=== PATIENT | female | born 1965 | race Caucasian/White ===

== ENCOUNTER 2018-05-10 18:34 | Emergency (ER) | payer BC, SELFPAY ==
[2018-05-10 18:35] VITALS: BP 139/76; PULSE 93; RESP 18; TEMP 37.2; O2SAT 97; BMI 30.8
--- NOTE | 2018-05-10 18:46 | CT_ITS ---
STUDY: CT ABDOMEN AND PELVIS WITH CONTRAST REASON FOR EXAM: Female, 53 years old. Blood in stool. Crohn's disease. History of ileum resection. RADIATION DOSAGE (If Supplied By Facility): CTDIvol = ( 14.86 ) mGy, DLP = ( 980.04 ) mGycm TECHNIQUE: Transaxial images were obtained from the dome of the diaphragm to the symphysis pubis without oral contrast. 100ML ml of Isovue 300 contrast was administered. Sagittal and coronal images were reconstructed. Individualized dose optimization techniques were used for this CT. COMPARISON: 04/03/2013 FINDINGS: The visualized lung bases are clear. The visualized portions of the heart and pericardium are within normal limits. There are no calcified gallstones present. The liver is within normal limits. There are no suspicious hepatic lesions. The spleen is normal in size. The pancreas is within normal limits. The adrenal glands are within normal limits. There are no obstructing renal stones. There is no hydronephrosis. There are no focal renal lesions. Normal visualized stomach. There is no bowel obstruction. There is bowel wall thickening in the ascending colon which is consistent with colitis. The appendix is not visualized, but there are no findings to suggest acute appendicitis. The aorta is normal in caliber. There is no abdominal or pelvic free air, free fluid, fluid collection or lymphadenopathy. There are no destructive osseous lesions. CT/Abdomen/Pelvis W IV Cont ONLY IMPRESSION: Colitis in the ascending colon. Electronically Signed: Prabhjot Rosenthal, at 20:00 EDT Tel , Service support ,
--- NOTE | 2018-05-10 19:00 | ED.DCSUM_ITS ---
- ER Visit Summary Date of Service: 05/10/18 Chief Complaint: Bright red blood per rectum History of Present Illness: The patient is a 53 F presents to the emergency department with bright red blood per rectum. The patient has a history of Crohn 's disease, but has been without medication and well-controlled for over 3 years. She had a prior partial bowel resection of her terminal ileum in 2011. She states she has been without treatment for almost 3 years. She states today , she was in her normal state of health. She woke this morning with some mild lower abdominal cramping and the urge to move her bowels. She had a normal bowel movement. There is no diarrhea. She states that she had a normal day. She actually went hiking with her . When she came home again, she had the sudden urge to move her bowels. She states when she did, it was bright red blood with clots. She has never had anything like this before. She states this is much more blood that she has had with her Crohn's disease in the past. She denies any fevers or chills. She denies any abdominal pain. The patient is on no anticoagulants. Physical Examination: Vital signs reviewed General: Well-nourished, well-developed Head: Normocephalic, atraumatic Eyes: Pupils equal and reactive, extraocular muscles intact Neck, supple, no lymphadenopathy Heart: Regular rate and rhythm Respiratory: No distress, clear bilaterally Abdomen: Soft, nontender, nondistended, no peritoneal signs Back: Nontender Extremities: Nontender, no edema, no cords Skin: Normal color no rash Neuro: Alert and oriented, no focal or lateralizing deficits Test Results: [] Emergency Department Course and Treatment: The patient had gross red blood, but no active bleeding on examination. Her abdomen was benign. With her history of Crohn's disease, IV was established. Patient was given IV fluids. Screening labs are obtained. Hemoglobin is normal. Orthostatics were negative. CT demonstrates colitis of the ascending colon. I had a long conversation with the patient. She is very hesitant about doing any medication. She states that she does not want to be on any medications. I did residential substance abuse counselor her that short burst of steroid and oral antibiotic with significantly improve her symptoms. After much discussion, the patient has agreed. I do feel that she is safe for outpatient therapy. She has had no further bleeding. She is not on anticoagulants. She does not have a fever. She has no abdominal tenderness. She is given Solu-Medrol, Cipro, and Flagyl and will be continued on this as an outpatient. She is counseled that if her symptoms worsen to return immediately. She is comfortable with this plan of care. Treatment Plan: [] Disposition: Discharge Impression: 1. Crohn's flare This note was generated with [employer] dictation software. It may contain incorrect words, spelling, and punctuation that were not noted in review of the chart prior to signing ED Disposition - Plan for ED Patient: Chief Complaint: GI Bleed Instructions: ED Inflam Bowel Disease Crohn Prescriptions: Metronidazole [Flagyl] 500 mg PO Q8H #21 tab Prednisone [Deltasone] 40 mg PO DAILY #10 tab Ciprofloxacin [Cipro] 500 mg PO BID #10 tab Referrals: Jaison Miller MD [Primary Care Provider] -
[2018-05-10 19:03] VITALS: BP 126/61; PULSE 79; RESP 16; O2SAT 96
[2018-05-10] MEDS: 0.9% Normal Saline 1,000 ML 1000 ML IV (19:03)
[2018-05-10 19:36] LABS: Bacteria 0 SEEN /hpf (None Seen); Mucous, Urine 0 SEEN /hpf (<or=2+); Red Blood Cells-Urine 0 SEEN /hpf (0-5); Squamous Epithelial Cells - UA 0 SEEN /hpf (5-10); White Blood Cells 0 SEEN /hpf (0-5)
[2018-05-10 19:37] LABS: Absolute Lymphocyte Count 2.13 X10^3/ul (0.83-4.51); Absolute Neutrophil Count 4.4 X10^3/uL (2.0-7.7); Basophil# 0.03 X10^3/uL; Basophil% 0.4 % (0-1); Eosinophil# 0.19 X10^3/uL; Eosinophils% 2.5 % (0-5); Hematocrit 36.1 % (37-47); Lymphocyte # 2.13 X10^3/ul (4.0); Lymphocyte % 28.5 % (19-41); Mean Corp Hgb Conc 33.2 g/gl (32-36); Mean Corpuscular Hgb 29.3 pg (27.0-32.0); Monocyte# 0.68 X10^3/uL; Monocyte% 9.1 % (0-10); Neutrophil # 4.44 X10^3/uL (2.7-7.7); Neutrophil % 59.4 % (47-70); Platelet Count 255 K/mm3 (150-450); RBC Distribution Width CV 12.8 % (11.6-14.6); RBC Distribution Width SD 39.9 fl (35.1-43.9); White Blood Count 7.5 K/mm3 (4.4-11.0)
[2018-05-10 19:41] LABS: Color, Urine Yellow (Yellow); Glucose, Dipstick Normal (Normal); Ketone-Dipstick Negative (Negative); Leukocyte Esterase-Dipstick Negative /ul (Negative); Nitrite-Dipstick Negative (Negative); Occult Blood-Urine Negative /ul (Negative); Protein-Dipstick Negative (Negative); Urine Bilirubin Dipstick Negative (Negative); Urine Clarity Clear (Clear); Urine Urobilinogen Normal (Normal)
[2018-05-10 19:43] LABS: ALB/GLOB Ratio 1.1 RATIO (0.9-2.4); AST(SGOT) 22 U/L (15-37); Alanine Aminotransfer ALT/SGPT 23 U/L (13-56); Albumin, Serum 3.4 g/dL (3.2-5.0); Alkaline Phosphatase 95 U/L (45-117); Anion Gap 4 (5-15); BUN 16 mg/dL (7-18); Calcium,Total 8.6 mg/dL (8.5-10.1); Chloride 106 mmol/L (98-107); EST Glomerular Filtration Rate 80 mL/min (>60); Est Glom Filt Rate - Afr Amer 97 mL/min (>60); Estimated Creatinine Clearance 74.86 ml/min; Globulin 3.2 g/dL (2.2-4.2); Glucose 88 mg/dL (74-106); Protein, Total 6.6 g/dL (6.4-8.2); Sodium Level 140 mmol/L (136-145)
[2018-05-10 19:44] LABS: POSITIVE COUNT NO; POSITIVE DIFFERENTIAL NO; POSITIVE MORPHOLOGY NO
[2018-05-10 20:05] VITALS: BP 118/79; BP 130/78; BP 149/68; PULSE 68; PULSE 78; PULSE 80
[2018-05-10] MEDS: MethylPREDNISolone 125 MG/2 ML Vial IV (20:33)
[2018-05-10] MEDS: Ciprofloxacin 500 MG Tablet PO (20:33)
[2018-05-10] MEDS: metroNIDAZOLE 500 MG Tablet PO (20:33)
[2018-05-10 20:44] VITALS: RESP 16
--- NOTE | 2018-05-10 20:44 | ED.RN ---
REVIEWED D/C INSTRUCTIONS, FOLLOW UP CARE, PRESCRIPTIONS, AND S/S THAT WOULD WARRANT A RETURN TO THE ED WITH PT. PT VERBALIZED AN UNDERSTANDING AND DENIES FURTHER QUESTIONS FOR THIS RN. PT SKIN P/W/D, RESP EVEN AND UNLABORED, PT A&O X 3, NO DISTRESS NOTED. PT AMBULATED OUT OF ED, GAIT STEADY.
== END 2018-05-10 20:46 | disposition home or self-care (01) ==
LOC: ED 18:50
PROVIDERS: Emergency Provider Emergency Medicine; Family Provider Family Medicine; PCP Family Medicine
DX: K50.90 Crohn's disease, unspecified, without complications (principal)
CPT/HCPCS: 74177; 80053; 81001; 85025; 86850; 86900; 96361; 96374; 99285; J7030; Q9967; A4216

== ENCOUNTER 2018-12-26 08:45 | Outpatient (RCR) | payer BC, SELFPAY ==
--- NOTE | 2018-12-26 09:05 | BH.SGPN.GN ---
Behaviors/Verbalizations/Mental Status: []Client alert and oriented, neatly dressed and groomed. Eye contact good. Motor activity appropriate. Speech within normal limits. Affect constricted, mood anxious. Thoughts linear, logical, no signs of hallucinations or delusions. Reviewed client?s symptom tracker no risk in suicidal ideation, plan, and intent as of 12/26/18. Client Response/Progress/Benefit: []Client responded well for her first day. Client was quiet, but she would participate when prompted. Client shared she feels ?anxious about being here.? Client reported she has never experienced a ?low like this before? and would like to stop crying all the time. Client declined to share further and then left to see program psychiatrist. Client was receptive to emotional support and validation from peers. Client appeared to benefit from connecting with group members. Client?s first day in PHP. Client to continue to prevent decompensation and increase mood, reduce depression, and increase mood stability.
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
--- NOTE | 2018-12-26 11:14 | BH.SGPN.GN ---
Behaviors/Verbalizations/Mental Status: [Client eye contact fair to good ? at times appearing intense, casually dressed, motor activity appropriate, speech normal rate and tone, mood anxious, constricted affect, thoughts linear and intact, no evidence of delusions or hallucinations.] Client Response/Progress/Benefit: [Client responded well to group and did well to provide some input despite appearing anxious in group setting. Client did well to challenge herself and volunteered to take on an active role in the activity. She was able to rely on the guidance of her peers when working to overcome restrictions or barriers in order to meet the goal and ask for clarification as needed. Appeared to become more comfortable as group progressed AEB client laughing with peers. Client worked cooperatively with group to brainstorm solutions to personal barriers identified and seemed to benefit from increasing repertoire of skills and strategies that can help overcome personal obstacles. Client progress in her ability to work through anxiety in order to engage in the group as well as connect with materials discussed. Client reported wanting to focus on improving her motivation and identified potential strategies in doing so as creating a list of small steps and manageable tasks she can take on. Recommended to continue IOP level care to decrease anxiety, develop healthy coping skills, and prevent decompensation.] Narrative Note: []
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
--- NOTE | 2018-12-26 13:44 | BH.DR.ITP ---
Initial Treatment Plan - Patient Information Visit Information: ADMISSION DATE: 12/26/18 EXPECTED LOS: 4-6 weeks Diagnoses:: Major depression, adjustment disorder with anxiety - Problems/Symptoms Problem #1:: depression Symptom:: low mood, crying all of the time, irritability Problem #2:: anxiety Symptom:: problems handling stress, lacking coping skills
--- NOTE | 2018-12-26 15:27 | BH.MDN ---
Multi-Disciplinary Note - Note 45-min Individual Time Started:: 12:15 Date: 12/26/18 Purpose of session/treatment goals addressed:: Purpose of session was to assess pt's current symptoms and stressors. Gathered additional information about what led up to pt being admitted to [facility] level of care. Psychoeducation about cognitive triangle and behavioral activation. Discussed weekend plan to help pt maintain safety and stay active. Eye Contact:: Good Motor Activity:: Restless Appearance:: Casual Speech:: Appropriate Mood:: Anxious, Depressed Affect:: Congruent Thoughts:: Linear, Logical, No evidence of hallucinations/delusions noted Staff Interventions:: Therapist used open ended questions to elicit pt's current symptoms and stressors. Therapist used probing questions to gather additional information about what led pt to [facility] level of care admission. Therapist provided support by validating emotions and using active listening. Therapist provided psychoeducation about cognitive triangle and behavioral activation. Provided pt with weekend plan worksheet in which pt is to identify 3 fun/enjoyable things to do, 3 responsibities, and reflect on goals want to accomplish in [facility]. Client Response:: Client reported she enjoyed the first day of group and was able to learn something new. Client reported she noticed June 2018 after taking a fall because of her Crohn's disease is one of the triggers to client decompensating. Client shared the fall resuled in medical complications from her Crohn's disease. Client stated after recovering from the medical complications she struggled with getting back to her exercise routine. Client shared she used to run/walk at least 5.5 miles every day until she had the fall in June 2018. Client reported in addition to not exercising she started to have more problems at work, which increased her stress level. Client shared she had a breakdown beginning of November because with all the stress she was experiencing and after a situation with her kids she felt like none of her children cared about her. Client stated she was yelling, screaming and having a melt down. Client reported she continued to decompensate throughout the month which was impacting her ability to function at work. Client shared she was non-stop crying at both home and work. Client reported she sought help because her employer gave her FMLA paperwork and told her she needed help. Client shared she would like to learn strategies to help her manage her emotions because she wants to stop crying all the time. Client reported she wants to improve her motivation because she stated I don't want to do anything. 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 Client connected with psychoeducation about connection between thoughts, emotions, and behaviors as well as education about behavioral activation. Client agreeable to complete weekend plan provided for homework. Risks/Concerns:: Client denies current suicidal ideation, plan or intention to date. Progress Toward Goals/Plan:: No progress noted given client's first day in PHP. Session focused on building rapport, starting to identify treatment goals, and education. Patient to continue PHP level of care to decrease depression, maintain safety and prevent decompensation. Time Stopped:: 13:00
--- NOTE | 2018-12-29 08:28 | BH.MDN_ITS ---
Multi-Disciplinary Note - Note 45-min Individual Time Started:: 12:15 Date: 12/26/18 Purpose of session/treatment goals addressed:: Purpose of session was to assess pt's current symptoms and stressors. Gathered additional information about what led up to pt being admitted to [facility] level of care. Psychoeducation about cognitive triangle and behavioral activation. Discussed weekend plan to help pt maintain safety and stay active. Eye Contact:: Good Motor Activity:: Restless Appearance:: Casual Speech:: Appropriate Mood:: Anxious, Depressed Affect:: Congruent Thoughts:: Linear, Logical, No evidence of hallucinations/delusions noted Staff Interventions:: Therapist used open ended questions to elicit pt's current symptoms and stressors. Therapist used probing questions to gather additional information about what led pt to [facility] level of care admission. Therapist provided support by validating emotions and using active listening. Therapist provided psychoeducation about cognitive triangle and behavioral activation. Provided pt with weekend plan worksheet in which pt is to identify 3 fun/enjoyable things to do, 3 responsibities, and reflect on goals want to accomplish in [facility]. Client Response:: Client reported she enjoyed the first day of group and was able to learn something new. Client reported she noticed June 2018 after taking a fall because of her Crohn's disease is one of the triggers to client decompensating. Client shared the fall resuled in medical complications from her Crohn's disease. Client stated after recovering from the medical complications she struggled with getting back to her exercise routine. Client shared she used to run/walk at least 5.5 miles every day until she had the fall in June 2018. Client reported in addition to not exercising she started to have more problems at work, which increased her stress level. Client shared she had a breakdown beginning of November because with all the stress she was experiencing and after a situation with her kids she felt like none of her children cared about her. Client stated she was yelling, screaming and having a melt down. Client reported she continued to decompensate throughout the month which was impacting her ability to function at work. Client shared she was non-stop crying at both home and work. Client reported she sought help because her employer gave her FMLA paperwork and told her she needed help. Client shared she would like to learn strategies to help her manage her emotions because she wants to stop crying all the time. Client reported she wants to improve her motivation because she stated I don't want to do anything. 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 Client connected with psychoeducation about connection between thoughts, emotions, and behaviors as well as education about behavioral activation. Client agreeable to complete weekend plan provided for homework. Risks/Concerns:: Client denies current suicidal ideation, plan or intention to date. Progress Toward Goals/Plan:: No progress noted given client's first day in PHP. Session focused on building rapport, starting to identify treatment goals, and education. Patient to continue PHP level of care to decrease depression, maintain safety and prevent decompensation. Time Stopped:: 13:00
--- NOTE | 2018-12-29 09:05 | BH.SGPN.GN ---
Behaviors/Verbalizations/Mental Status: [] Eye contact is good. Motor activity is appropriate. Appearance is neat. Speech is Appropriate. Mood is depressed. Affect is flat. Thoughts are linear and logical. No evidence of psychosis. Reviewed daily check in sheet and no reports of suicidal ideations or intent. Client Response/Progress/Benefit: [] Pt was attentive during group discussion. Spoke mainly when prompted. Emotion for today is anxious. Shared that her weekend went well however pointed out several stressors and mentioned some challenges with negative thinking and managing her emotions. She reports difficulty filling the time in her day. Pointed out that if she is not accomplishing tasks or goals than she becomes overcome with guilt, feeling like she is lazy, and feelings of guilt. Group challenged these thoughts and discussed the importance of relaxation and self-care being the ultimate task or goal even thought this involves sometimes doing nothing. Benefited from group feedback and encouragement. Will continue in PHP to prevent decompensation, increase coping skills, and improve daily functioning to return to work. Limited progress noted per pt. Narrative Note: []
--- NOTE | 2018-12-29 10:07 | BH.SGPN.GN ---
Behaviors/Verbalizations/Mental Status: [Client alert and orient x3, eye contact good, appearance casual and neat, grooming well tended to, motor activity WNL, speech an appropriate rate and soft tone. Client mood euthymic and anxious, affect congruent. Thoughts remained linear and intact, no evidence of delusion or hallucinations. ] Client Response/Progress/Benefit: [Client receptive of session and was engaged throughout, providing input and participation in the activity. Client appeared to connect with the topic of ?managing emotions? AEB participation in discussion reviewing the impact of emotion regulation on communication with supports and mental health management. Shared that not regulating emotions can negatively impact mental health by causing individual needs to go unmet and problems remain unresolved as a result. Client benefitted from challenging herself to practice emotion regulation skills during the activity portion and did well to remain calm and supportive despite various stressors and setbacks. Progress noted in increased ability to provide insight and suggestions to the group. Recommended continued IOP tx to prevent decompensation, decrease depression, and improve mental health management.] Narrative Note: []
--- NOTE | 2018-12-29 11:20 | BH.SGPN.GN ---
Behaviors/Verbalizations/Mental Status: []Client alert and oriented, neatly dressed and groomed. Eye contact good. Motor activity appropriate. Speech soft, but overall within normal limits. Affect constricted, mood anxious. Thoughts linear, logical, no signs of hallucinations or delusions. Client Response/Progress/Benefit: [] Client responded well to session, quiet, but participating when prompted. Client helped the group further process barriers and solutions from the activity. Client shared that wanting to ?jump in and solve things? was a barrier for client in the activity and she recognized she does this in her daily life as well. Client acknowledged that teamwork, patience, and reminding oneself that she is responsible for her emotions helped the group be successful. Client appeared to connect with the different zones of alertness and the emotions connected to each. Client agreed with peers that it is important to have awareness of all the zones so one can use healthy coping skills. Client able to identify the different emotions in each zone of regulation as well as healthy coping skills for each zone. Client reported belief she is in the ?light blue? zone today as client feels somewhat low motivation and energy today. Client recognized that opposite action will help client feel better. Client?s goal for today is to ?finish my to do list and reward myself with a pedicure.? Client stated her to do list is manageable and her will hold client accountable. Client appeared to benefit from gaining self-awareness and setting a goal that will promote opposite action. Client?s second day in PHP, but she appears to be assimilating well into the group setting. Client to continue PHP to prevent decompensation and reduce depression.
--- NOTE | 2018-12-29 12:34 | BH.MTP ---
Master Treatment Plan - Patient Information Program Physician:: Dr. Loredo Primary Therapist:: Kathy Henley, [facility] - Psychiatric Diagnoses Psychiatric Diagnoses:: Major Depressive Disorder, Recurrent, Moderate. Anxiety Disorder Diagnosis Code(s):: F33.1 - Estimated LOS Estimated LOS (in weeks):: 6 Problem/Goal #1 - Problem/Goal #1 Stated Goal:: Client will decrease depression, feeling of hopelessness, and passive thoughts of due to Major Depression Disorder through Partial Hospitalization Program. Description of Barriers: Pt's distorted thoughts, negative self-talk, high expectations of self, and low motivation could be barriers to treatment. Functional Impact: Pt's depressed and anxious symptoms made it difficult to function at work and employer encouraged pt to take FMLA to get mental health treatment. Pt's personal relationships also impacted due to increased agitation. Pt struggling to complete daily tasks and responsibilites, stated she'd rather lay in bed. Pt not functioning at baseline. Goal Relevant Strengths/Supports: Pt is resilient, intelligent, and verbalizes motivation to get better. Pt's is extremely supportive and per pt report he does his best to motivate her to make positive choices. - Objectives Objective #1 Stated Objective: Client will develop a ?crisis plan? which includes emergency telephone numbers, 3-4 coping strategies for SI, lists of supports, positive aspects of life, and motivations. Interventions: Therapist will provide list of crisis phone numbers. Therapist will work with client to identify effective coping strategies and steps to take in time of mental health crisis. Discharge Criteria: Client will have achieved this goal once completes safety plan and is able to utilize coping strategies. Target Date: 01/07/19 Objective #2 Stated Objective: Client will increase daily activity and productivity by engaging in at least once enjoyable activity daily and completing at least 3 responsibilites daily. Interventions: Assist client with creating a balanced schedule of behavioral activation by scheduling rewarding activities while not over-stimulating. Discharge Criteria: Client will have achieved this objective when consistently engaging in at least one enjoyable activity daily and completing at least 3 daily responsibilites. Target Date: 01/07/19 Problem/Goal #2 - Problem/Goal #2 Stated Goal:: Client will reduce overall frequency, intensity, and duration of the anxiety so that daily functioning is not impaired. Description of Barriers: Pt's distorted thoughts, negative self-talk, high expectations, and low motivation could be barriers to treatment. Functional Impact: Pt's depressed and anxious symptoms made it difficult to function at work and employer encouraged pt to take FMLA to get mental health treatment. Pt's personal relationships also impacted due to increased agitation. Pt struggling to complete daily tasks and responsibilites, stated she'd rather lay in bed. Pt not functioning at baseline. Goal Relevant Strengths/Supports: Pt is resilient, intelligent, and verbalizes motivation to get better. Pt's is extremely supportive and per pt report he does his best to motivate her to make positive choices. - Objectives Objective #1 Stated Objective: Client will learn and implement 2-3 calming skills to reduce overall anxiety and manage anxiety symptoms. Interventions: Therapist will teach client calming/grounding skills and assign client homework which practices calming skills daily. Discharge Criteria: Client will have achieved this goal when can verbalize at least 2 calming skills and implement those skills. Target Date: 01/07/19
--- NOTE | 2018-12-29 14:43 | BH.MDN ---
Multi-Disciplinary Note - Note 45-min Individual Time Started:: 12:19 Date: 12/29/18 Purpose of session/treatment goals addressed:: Purpose of session was to asses pt's current symptoms and stressors. Other topcis included: reviewing homework from last session, solidifying treatment goals for PHP, and importance of recognizing positives/success. Eye Contact:: Good Motor Activity:: Appropriate Appearance:: Neat Speech:: Appropriate Mood:: Euthymic, Anxious Affect:: Congruent Thoughts:: Linear, Logical, No evidence of hallucinations/delusions noted Staff Interventions:: Therapist used open ended questions to elicited pt's current symptoms and stressors. Therapist reviewed pt's homework from last individual session. Therapist elicited pt's thoughts about PHP treatment goals. Therapist educated pt about changing perspective and provided pt with homework to identify each evening at least 3 positives from the day. Client Response:: Client reported overall she had a good weekend. Client shared for her weekend worksheet plan three fun/enjoyable activities she completed were: running/hiking, shopping for redecorating the house, and watching her favorite tv show. Client shared she was able to run/hike 4 miles on Saturday. Client reported she felt sick the rest of the day, but on Saturday still was able to go hiking despite not feeling completely okay. Client shared after hydrating and eating she felt better. Client reported three responsibilities she completed included: patched bedroom alvarado, donated clothes, and did laundry. Client shared she didn't cry at all yesterday, which she identified is the first time in several weeks. Client shared goals she'd like to focus on for PHP level of care to include: improving self-image by decreasing critical self-talk. Client shared also wanting to decrease guilt for past decisions. Identified desire to learn healthy coping skills to manage depression and frustration. client agreeable to identify 3 positives from her day each evening. Risks/Concerns:: Client denies current suicidal ideation, plan or intention to date. Progress Toward Goals/Plan:: Client making progress with completing at least 3 enjoyable activities and 3 responsibilites over the weekend. With support from client able to exercise, which is something client has noted has been difficult recently. Client to continue PHP level of care to decrease depression, maintain safety and prevent decompensation. Time Stopped:: 13:00
--- NOTE | 2018-12-30 09:05 | BH.SGPN.GN ---
Behaviors/Verbalizations/Mental Status: []Client alert and oriented, neatly dressed and groomed. Eye contact good. Motor activity appropriate. Speech within normal limits. Affect congruent, mood euthymic. Thoughts linear, logical, no signs of hallucinations or delusions. Reviewed client?s symptom tracker no risk in suicidal ideation, plan, and intent as of 12/30/18. Client Response/Progress/Benefit: []Client responded well to session, open to feedback from peers. Client reports feeling ?better than yesterday? as client feels more energetic. Client stated going to the gym this morning contributes to her improved mood and energy today. Client stated she has been using different strategies to help client engage in opposite action such as putting her phone in another room, so she has to ?actually get out of bed.? Client?s mental health positives include making it to the gym this morning, accomplishing most of her to-do list yesterday, and rewarding herself with a pedicure today. Client shared she feels bad at times that her ?has to check in on me? but the group was able to normalize this. Client?s current stressor is feeling anxious about going to [place] with her family this weekend. Client reported she has been talking with her about it and they are going to create a plan together. Client was receptive to feedback from peers on other ways to manage anxiety. Client appeared to benefit from gaining feedback and reflecting on positives. Progress noted as client appears to be generalizing healthy coping skills, but she continues to report negative thinking the reinforces depression and anxiety. Client to continue PHP to prevent decompensation and increase mood stability.
--- NOTE | 2018-12-30 10:10 | BH.SGPN.GN ---
Behaviors/Verbalizations/Mental Status: [Client alert and oriented, casually and neatly dressed and appropriately groomed. Eye contact good. Motor activity appropriate. Speech within normal limits. Affect congruent to mood, mood anxious. Thoughts linear, logical, no signs of hallucinations or delusions. ] Client Response/Progress/Benefit: [Client responded well to session, engaged in discussion and provided insight on importance of intent behind the coping skills we use. Client shared coping skills can be both positive and negative but that the intent behind why we are using a particular skill could easily turn a healthy skill into an unhealthy one. Provided an example of running to clear head and think more rationally versus running to avoid or distract from a problem. Client benefitted from discussion reviewing how coping skills develop and differences in internal vs. external coping. Client engaged in the activity and reported more confident in her ability to participate with the positive support and communication of the group. Client connected this to her recognition that sometimes we need assistance in developing a plan or ability to effectively cope with a situation/problem. Progress in client reports of improved awareness of her limited fund of internal skills and desire to build a more balanced foundation of internal and external resources. Client to continue IOP to prevent decompensation and increase use of positive coping mechanisms to regulate emotions. ] Narrative Note: []
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
--- NOTE | 2018-12-30 14:43 | BH.MDN ---
Multi-Disciplinary Note - Note 60-min Individual Time Started:: 12:15 Date: 12/30/18 Purpose of session/treatment goals addressed:: Purpose of session was to assess pt's current symptoms and stressors. Other topics: reviewed homework, connected potential connection between pt's childhood experiences and how has impacted pt today, and thought log. Eye Contact:: Good Motor Activity:: Appropriate Appearance:: Neat Speech:: Appropriate Mood:: Euthymic, Anxious Affect:: Congruent Thoughts:: Linear, Logical, No evidence of hallucinations/delusions noted Staff Interventions:: Therapist used open ended questions to elicit pt's current symptoms and stressors. Therapist reviewed pt's homework from previous session. Therapist provided brief psychoeducation about impact childhood trauam has on the brain and behavior. Therapist assisted pt with connecting the impact the messages she recieved when a child has impacted her today. Therapist taught pt a grounding tool and gave handout. Therapist provided pt with thought log to complete for homework. Client Response:: Client reported she completed her homework by identifying three positives from her day yesterday evening. Client shared the positives were: she laughed, completed 7 out of 9 tasks/chores and learned something new. Client opened up about traumas she endured as a child. Client connected with the education about how trauma had impacted her growing up. Client shared she was able to change her survival behaviors once she got . Client reported her past experience has mostly helped her be a better parent because learned what not to do. Client shared she can connect some of the negative statements and messages she recieved from her family members are still ingrained in her to this day. Client agreeable to complete thought log to increase awareness of negative thoughts thoughtout day and insight into core beliefs. Client connected with the 5,4,3,2,1 grounding tool and agreeable to practice skill. Risks/Concerns:: Client denies suicidal ideation, plan or intention to date. Progress Toward Goals/Plan:: Pt progress noted as evidenced by pt completing daily tasks, able to identify positives, and reporting decrease in frequency and duration of crying episodes. Pt continuing to have negative thought patterns, difficulty motivating self to engage in certain activities, and ruminating thoughts. Pt to continue PHP level of care to decrease depression, increase use of healthy coping and prevent decompensation. Time Stopped:: 13:12
--- NOTE | 2018-12-31 09:06 | BH.SGPN.GN ---
Behaviors/Verbalizations/Mental Status: []Client alert and oriented, neatly dressed and groomed. Eye contact good. Motor activity appropriate. Speech within normal limits. Affect incongruent as client is reporting discomfort and poor sleep, but smiling, mood uncomfortable- Digestion issue related. Thoughts linear, logical, no signs of hallucinations or delusions. Reviewed client?s symptom tracker, no risk for suicidal ideation, plan, or intent as of 12/31/18. Client Response/Progress/Benefit: []Client responded well to session, providing insight to discussion. Client reports feeling discomfort today due to digestive issues. Client stated her stressor today is being tired as client reports belief her sleep is poor due to client not crying every night now. Client shared ?I used to cry every night and just feel so exhausted that I would sleep.? Client receptive to feedback from therapist and clients on ways to practice relaxation and emotional release strategies before bed. Client identified her current positives as taking time for self-care yesterday by getting a pedicure, crying less, and having a more positive mood yesterday. The group wrote down things each person deserves credit for and client reported she deserves credit for ?admitting I needed help and asking for it.? Client shared she was nervous about coming to PHP at first because of the mental health stigma. Client appeared to benefit from gaining ideas for relaxation techniques and reflecting on positives. Progress noted as client shared she has been learning a lot from group and has not been crying as much. Client to continue PHP as she can reduce depression and negative thinking while increasing coping skills.
--- NOTE | 2019-01-01 09:02 | BH.SGPN.GN ---
Behaviors/Verbalizations/Mental Status: [Eye contact is good. Motor activity WNL. Appearance neat and casual, appropriate grooming. Speech Appropriate rate and tone. Mood anxious, dysthymic. Affect is congruent. Thoughts linear and logical, reports struggling with rumination. No evidence of delusions or hallucinations. Reviewed daily check in sheet and no reports of suicidal ideations or intent] Client Response/Progress/Benefit: [Client receptive of session, willing to share current progress and stressors with the group. Indicated current mood as ?weepy? which client attributes to experiencing a flare in Crohn?s disease symptoms. She went on to discuss that when her symptoms get worse she begins to engage in negative thinking which often leads to ruminating thoughts and feeling worse. Client shared struggling with thoughts of ?I?m always going to be like this? and ?I?ll never get better?. She benefited from challenging herself to identify strategies for preventing rumination throughout the remainder of the day. Client identified that taking notes in group and focusing on being present will be helpful in not engaging in negative thought patterns. Client additionally identified that writing down her thoughts and challenging them is a new skill she is trying and intends on using it today. Progress noted in client ability to identify healthy internal coping skills she can use to prevent increasing her anxiety sx. Additional IOP tx to promoting continued use of distress tolerance skills, as well as prevent decompensation.] Narrative Note: []
--- NOTE | 2019-01-01 11:15 | BH.SGPN.GN ---
Behaviors/Verbalizations/Mental Status: []Client alert and oriented, neatly dressed and groomed. Eye contact good. Motor activity appropriate. Speech within normal limits. Affect congruent, mood anxious. Thoughts linear, logical, no signs of hallucinations or delusions. Client Response/Progress/Benefit: []Client responded well to session, participating in activity and providing good insight to discussion. Client engaged in the activity that demonstrated the effort and time it takes to challenge distortions. Client shared ?it?s going to take a lot of effort to change the distortions.? Client helped the group practice challenging example cognitive distortions and did well to identify distortions and look at evidence against distorted thoughts. Client assisted the group in learning ways to combat negative thinking and client stated she plans to ask herself ?is it irrational? when she recognizes a negative thought. Client stated this will help her be more objective and take a step back ?because I jump to the worst case all the time.? Client appeared to benefit from practicing thought challenging and gaining awareness of the effort it takes to reframe negative thoughts. Progress noted as client has increased her communication in group and reports increased self-awareness. Client to continue PHP to promote mood stability and reduce cognitive distortions that reinforce anxiety and depression.
--- NOTE | 2019-01-01 14:06 | BH.MDN ---
Multi-Disciplinary Note - Note 45-min Individual Time Started:: 12:18 Date: 01/01/19 Purpose of session/treatment goals addressed:: Purpose of session was to assess pt's current symptoms and stressors. Other topics included: reviewing group topic of cognitive distortions, cognitive restructuring, and crisis/safety plan. Eye Contact:: Good Motor Activity:: Appropriate Appearance:: Casual Speech:: Appropriate Mood:: Anxious, Depressed - tearful at times Affect:: Congruent Thoughts:: Linear, Logical, No evidence of hallucinations/delusions noted Staff Interventions:: Therapist used open ended questions to elicit pt's curent symptoms and stressors. Therapist reviewed and processed group session today about cognitive distortions. Elicited which distortions pt relates to the most. Assisted pt with reframing a distorted thought. Reviewed safety/crisis plan and discussed importance of having a plan in place. Provided homework to pt to complete safety/crisis plan. Client Response:: Client reported she has been more somber and weepy since not physically feeling as good due to a Chron's disease flare up. Client shared when she is physically feeling ill she recognizes her anxious thinking increases. Client stated she starts to worry what if this is permanent. Client stated she has been challenging her thoughts by remind herself the not feeling good is only temporary. Client shared she could relate to the cognitive distortions discussed in group today, but feels exhausted because of how much she learned today. Client reported she connects with [facility] distortion of all or nothing thinking because it's something she has done for a very long time. Client stated she believes all or nothing thinking is attributed to her hindu teachings becasue in [facility] bible it states you can't be on the fence. Client able to connect all or nothing thinking has led to rigid thinking patterns and has negatively impacted her in certain areas of her life. Client also stated should statemetns and catastrophizing to be common distortions she defaults to using. Client related to the reframed thought therapist assisted patient in challenging. Client agreeable to write down distorted thoughts over next few days. Client shared she understood importance of safety/crisis plan and agreeable to complete for homework. Risks/Concerns:: Client denies suicidal ideation, plan or intention to date. Progress Toward Goals/Plan:: Client demonstrating progress AEB pt reporting decrease in frequency and duration of crying. Client also progressing with increased self-awareness of unhelfpul thought patterns. Client recently had a Chron's disease flare up yesterday which has increased pt's physical pain and increased pt's feelings of sadness. Client to continue PHP level of care to maintain gains, increase use of healthy coping and prevent decompensation. Time Stopped:: 13:00
--- NOTE | 2019-01-01 15:14 | BH.MDN_ITS ---
Multi-Disciplinary Note - Note 45-min Individual Time Started:: 12:18 Date: 01/01/19 Purpose of session/treatment goals addressed:: Purpose of session was to assess pt's current symptoms and stressors. Other topics included: reviewing group topic of cognitive distortions, cognitive restructuring, and crisis/safety plan. Eye Contact:: Good Motor Activity:: Appropriate Appearance:: Casual Speech:: Appropriate Mood:: Anxious, Depressed - tearful at times Affect:: Congruent Thoughts:: Linear, Logical, No evidence of hallucinations/delusions noted Staff Interventions:: Therapist used open ended questions to elicit pt's curent symptoms and stressors. Therapist reviewed and processed group session today about cognitive distortions. Elicited which distortions pt relates to the most. Assisted pt with reframing a distorted thought. Reviewed safety/crisis plan and discussed importance of having a plan in place. Provided homework to pt to complete safety/crisis plan. Client Response:: Client reported she has been more somber and weepy since not physically feeling as good due to a Chron's disease flare up. Client shared when she is physically feeling ill she recognizes her anxious thinking increases. Client stated she starts to worry what if this is permanent. Client stated she has been challenging her thoughts by remind herself the not feeling good is only temporary. Client shared she could relate to the cognitive distortions discussed in group today, but feels exhausted because of how much she learned today. Client reported she connects with [facility] distortion of all or nothing thinking because it's something she has done for a very long time. Client stated she believes all or nothing thinking is attributed to her hinduism teachings becasue in [facility] bible it states you can't be on the fence. Client able to connect all or nothing thinking has led to rigid thinking patterns and has negatively impacted her in certain areas of her life. Client also stated should statemetns and catastrophizing to be common distortions she defaults to using. Client related to the reframed thought therapist assisted patient in challenging. Client agreeable to write down distorted thoughts over next few days. Client shared she understood importance of safety/crisis plan and agreeable to complete for homework. Risks/Concerns:: Client denies suicidal ideation, plan or intention to date. Progress Toward Goals/Plan:: Client demonstrating progress AEB pt reporting decrease in frequency and duration of crying. Client also progressing with increased self-awareness of unhelfpul thought patterns. Client recently had a Chron's disease flare up yesterday which has increased pt's physical pain and increased pt's feelings of sadness. Client to continue PHP level of care to maintain gains, increase use of healthy coping and prevent decompensation. Time Stopped:: 13:00
--- NOTE | 2019-01-02 09:05 | BH.SGPN.GN ---
Behaviors/Verbalizations/Mental Status: [] Eye contact is good. Motor activity is appropriate. Appearance is neat. Speech is Appropriate. Mood is anxious. Affect is congruent. Thoughts are linear and logical. No evidence of psychosis. Reviewed daily check in sheet and no reports of suicidal ideations or intent. Client Response/Progress/Benefit: [] Pt was an active participant in group discussion. Emotion for today is content. Shared with the group that while she continues to have crying spells they have decreased in severity, frequency, and duration. Reports crying spell yesterday due to being overwhelmed. Set up some goals yesterday which involved some household tasks like painting. Pt reports that she pushed herself to complete these tasks which may have led to crying spell. Anxiety due meeting with family this upcoming weekend. She choose not to elaborate on what part of the trip was anxiety producing. Participated in group discussion on cognitive distortions and how to increase awareness and combat them. Benefited from support, encouragement, and feedback from peers. Pt reports progress from last week. Will continue in PHP to stabilize mood, prevent decompensation, and improve daily functioning. Narrative Note: []
--- NOTE | 2019-01-02 10:03 | BH.SGPN.GN ---
Behaviors/Verbalizations/Mental Status: []Client alert and oriented, neatly dressed and groomed. Eye contact good. Motor activity appropriate. Speech within normal limits. Affect congruent to mood, mood euthymic. Thoughts linear, logical, no signs of hallucinations or delusions. Client Response/Progress/Benefit: []Client responded well to session, active participant. Client appeared to connect with the quote sharing, ?it doesn?t matter where we are at as long as we?re heading in the right direction.? Client stated choices one makes today can positively impact mental health progress. Client reported pitfalls can keep a person from ?heading in the right direction.? Client described pitfalls as setbacks and old habits. Client engaged in the activity that helped the group understand the impact of pitfalls. Client became frustrated at times when the group was unsuccessful, but responded appropriately. Client reported not being able to see the pitfalls at first made it difficult for the group to accomplish the goal. Client shared ?we have to have awareness of the pitfalls? and that, for her, it is also helpful to develop a plan for pitfalls. Client appeared to benefit from gaining awareness of how pitfalls can impact mental health and learning strategies to prevent pitfalls. Progress noted as client reports increased awareness of negative thoughts that reinforce anxiety. Client to continue PHP to further reduce mental health symptoms and increase coping skills.
--- NOTE | 2019-01-02 11:07 | BH.SGPN.GN ---
Behaviors/Verbalizations/Mental Status: [Client alert and oriented, neatly dressed and groomed. Eye contact good. Motor activity appropriate. Speech within normal limits. Affect congruent, mood anxious and euthymic. Thoughts linear, logical, no signs of hallucinations or delusions.] Client Response/Progress/Benefit: [Client contributed to discussion and providing insight regarding personal barriers and how they keep us stuck. Client connected ways the pitfalls experienced in the activity relate to potential personal barriers and provided examples. Client connected the importance of self-awareness, communication, and shared expectations to help overcome personal pitfalls. Client shared her personal pitfalls include: depression, lack of motivation, guilt, unhealthy learned behaviors. Client reported she will focus on taking breaks, celebrating her successes, forgiving herself if she has a setback as strategies for avoiding and working through personal pitfalls. Client seemed to benefit from increased awareness of personal pitfalls and identifying strategies that can help client overcome current or future pitfalls. Client to continue PHP level of care to prevent decompensation, increase healthy coping skills, and promote emotion regulation. ] Narrative Note: []
--- NOTE | 2019-01-02 12:05 | PCM.PN.BLA ---
Progress Note Chief Complaint: The patient is a 53-year old female who is an active participant in the partial hospitalization program at [facility]. She has a history of recurrent depression. History of Present Illness/Interim History: The patient reports improvement. She has found the intensive outpatient groups to be very helpful. She is learning coping skills and is able to apply them to her life. She has had a few ups and downs. 2 days ago she had a flareup of her Crohn's disease. This caused her to feel more depressed. She said she engaged in a pity green party. However she is now feeling better. Continues taking her naturopathic antidepressant. She notes that she does better when she stays active. She does better when when she is in a structured environment. She continues to think that the partial hospitalization program best meets her needs at this point. Current Psychiatric Medications: None. She is taking a naturopathic antidepressant. Review of Symptoms: Psychiatry: Improving depression as per HPI. She is not suicidal. There is no psychosis. She is cognitively intact. Constitutional: She is overweight and her weight has been steady. Her energy level is improving. Mental Status Examination: Patient presents as a pleasant, cooperative woman of overweight build who is neatly dressed and groomed. Her thoughts are logical and coherent. He reports improving depression. She is not suicidal. There is no psychosis. She is cognitively intact. Diagnoses: [] [place] I: Major depression, recurrent, in partial remission [place] II: None [place] III: Overweight, Crohn's disease Plan: Patient will continue in the partial hospitalization program. He is not interested in trying any antidepressant medicine at this time. I will see her again as needed.
--- NOTE | 2019-01-02 12:12 | PN_ITS ---
Progress Note Chief Complaint: The patient is a 53-year old female who is an active participant in the partial hospitalization program at [facility]. She has a history of recurrent depression. History of Present Illness/Interim History: The patient reports improvement. She has found the intensive outpatient groups to be very helpful. She is learning coping skills and is able to apply them to her life. She has had a few ups and downs. 2 days ago she had a flareup of her Crohn's disease. This caused her to feel more depressed. She said she engaged in a pity libertarian. However she is now feeling better. Continues taking her naturopathic antidepressant. She notes that she does better when she stays active. She does better when when she is in a structured environment. She continues to think that the partial hospitalization program best meets her needs at this point. Current Psychiatric Medications: None. She is taking a naturopathic antidepressant. Review of Symptoms: Psychiatry: Improving depression as per HPI. She is not suicidal. There is no psychosis. She is cognitively intact. Constitutional: She is overweight and her weight has been steady. Her energy level is improving. Mental Status Examination: Patient presents as a pleasant, cooperative woman of overweight build who is neatly dressed and groomed. Her thoughts are logical and coherent. He reports improving depression. She is not suicidal. There is no psychosis. She is cognitively intact. Diagnoses: [] [place] I: Major depression, recurrent, in partial remission [place] II: None [place] III: Overweight, Crohn's disease Plan: Patient will continue in the partial hospitalization program. He is not interested in trying any antidepressant medicine at this time. I will see her again as needed.
--- NOTE | 2019-01-02 13:51 | BH.MDN ---
Multi-Disciplinary Note - Note 30-min Individual Time Started:: 12:15 Date: 01/02/19 Purpose of session/treatment goals addressed:: Purpose of session was to discuss assess current stressors and symptoms. Other topics: problem solving for upcoming stressful weekend and self-care. Eye Contact:: Good Motor Activity:: Appropriate Appearance:: Casual Speech:: Appropriate Mood:: Anxious Affect:: Congruent Thoughts:: Linear, Logical, No evidence of hallucinations/delusions noted Staff Interventions:: Therapist used open ended questions to elicit pt's current symptoms and stressors. Therapist assisted pt with identifying what has helped pt overcome recent increase in depression since Chron's flare up. Therapist processed pt's anxieties about upcoming weekend trip. Therapist assisted pt with creating plan to help with mangaging anxiety throughout weekend trip. Therapist encouraged pt to include self-care activities into weekend plan. Client Response:: Client reported she is doing better today compared to yesterday because she is starting to physically feel better. Client shared she is feeling anxious because leaving today for the whole weekend to visit her daughter, daughter's boyfriend, and grandchild. Client shared she is mostly going down to help her daughter move houses. Client stated she hasn't seen her daughter since the November 27 incident in which client went off on her daughter. Client reported she has talked to her daughter on the phone since that incident, but they never processed or talked about the incident. Client shared she is most worreid she will say something that causes conflict between daughter and herself. Client stated she struggles with keeping her comments to herself at times, which results in problems. Client shared she thinks she will be okay because will mostly be babysitting her 4 month old grandchild while everyone else helps with moving. Client reported her plan for the weekend is to think through her comments before saying the comment outloud. Client shared she will also remind herself that her daughter is allowed to live how she wants, now how client thinks would be best for her daughter. Client reported for self-care over the weekend she will take kettlebells with her so she can workout as a way of emotional release. Risks/Concerns:: Client deneis suicidal ideation, plan or intention to date. Progress Toward Goals/Plan:: Client progressing with reporting decrease in depressed mood, following through with her goal of working out in the morning, and increased awarness of cognitive distortions. Client struggles with utilizng her healthy coping skills when she is physically ill, which client has Chron's disease so being ill could happen often. Client to continue PHP level of care to increase use of healthy coping even when not feeling well physically, challenge distorted thoughts, and prevent decompensation. Time Stopped:: 12:45
--- NOTE | 2019-01-05 09:03 | BH.SGPN.GN ---
Behaviors/Verbalizations/Mental Status: []Client alert and oriented, neatly dressed and groomed. Eye contact good. Motor activity appropriate. Speech within normal limits. Affect congruent-tearful, mood emotional. Thoughts linear, logical, no signs of hallucinations or delusions. Reviewed client?s symptom tracker, no risk for suicidal ideation, plan, or intent as of 01/05/19. Client Response/Progress/Benefit: []Client responded well to session, active participant, tearful throughout. Client reported ?I?m not sad I?m just emotional today? due to what client referred to as ?like the [place] blues.? Client spent the weekend with her family and ?everything worked out great,? however, now that client is back she feels like she is coming off a high and she misses her family. Client identified her mental health positives to be managing her anxiety this weekend by trying to reframe negative thoughts and focusing on helping others. Client stated her and looking at quotes were also helpful in managing her anxiety this weekend. Client?s current stressor is lacking motivation to work out. Client shared when she does not work out it impacts her mood and reinforces the cycle of depression. Last week, client reported she often uses all or nothing thinking, which may be contributing to her depressive cycle as well. Client reported ?I can find the good in others and in situations, but it?s hard to find the good in me.? Client reported staying busy and focusing on her next goal will be helpful today. Therapist gently challenged client to focus being present and identify one thing client is doing well right now. Client appeared to benefit from processing emotions with peers and gentle challenging. Client to continue PHP to further promote mood stability and reduce depressive symptoms. ]
--- NOTE | 2019-01-05 10:10 | BH.SGPN.GN ---
Behaviors/Verbalizations/Mental Status: [Client eye contact good - at times appearing intense, casually and neatly dressed and appropriately groomed, motor activity appropriate, speech normal rate and tone, mood anxious and dysthymic, congruent affect, thoughts linear and intact, no evidence of delusions or hallucinations.] Client Response/Progress/Benefit: [Client appearing anxious during session, though did well to challenge herself to participant in both discussion and activity potions of group. She was able to contribute insight to discussion reviewing the importance of setting and working towards goals. Client reported initially struggling to make connections with how to set goals focused on mental health rather than physical health. Client identified connecting with insight provided by fellow participants regarding what mental health goals may look like and noted making a connection with concept of goals leading to personal growth. Client did well to identify personal barriers to following through with goals and shared that anxiety and lack of motivation have impacted her goal setting and follow-through in the past. Client did well to participate in the review of SMART goal setting criteria and did well to connect with each component of SMART goals. Client seemed to benefit from rehearsing setting short-term SMART goal setting through the group activity. Displayed progress in her ability to challenge herself to set small, attainable goals rather than setting a goal that may be unrealistic or overwhelming as client identified that being competitive has led to overwhelming or pushing herself more than she is capable of at the time. Recommended continued IOP tx to decrease symptoms of depression and anxiety as well as encourage consistent application of coping skills and emotion regulation strategies learned.]] Narrative Note: []
--- NOTE | 2019-01-05 11:15 | BH.SGPN.GN ---
Behaviors/Verbalizations/Mental Status: []Pt eye contact good, casually dressed, motor activity appropriate, speech normal rate and tone, mood euthymic, congruent affect, thoughts linear and intact, no evidence of delusions or hallucinations. Client Response/Progress/Benefit: []Pt listened attentively to others and contributed thoughts and ideas to discussion. Client identified her small SMART goal is to exercise for at least 20 minutes everyday. Client stated this goal will benefit her by boosting her mood, increase confidence, and restart her daily habit. Pt identified lack of motivation to be potential barrier to achieving identified goal. Pt reported to overcome barrier to she will put post-it notes around her house with motivational quotes and statements to help push her to exercise. Pt shared another barrier would be not getting up in the morning to exercise, which she stated she can overcome this by exercising in the evening if that occurs. Pt reported another barrier could be physically not feeling well. Pt stated she will remind herself it's only 20 minutes. Pt stated her can be a support to her. Pt seemed to benefit from identifying a SMART goal and identifying ways to help overcome potential barriers. Pt to continue PHP level of care to decrease depression, challenge negative thoughts, and prevent decompensation. Narrative Note: []
--- NOTE | 2019-01-05 13:25 | BH.MDN ---
Multi-Disciplinary Note - Note 30-min Individual Time Started:: 12:17 Date: 01/05/19 Purpose of session/treatment goals addressed:: Purpose of session was to assess pt's current symptoms and stressors. Other topics: process weekend, increased awareness of thought patterns, and identifying progress since starting PHP. Eye Contact:: Good Motor Activity:: Appropriate Appearance:: Casual Speech:: Appropriate Mood:: Dysthymic - tearful Affect:: Congruent Thoughts:: Linear, Logical, No evidence of hallucinations/delusions noted Staff Interventions:: Therapist used open ended questions to elicit client's current symptoms and stressors. Therapist processed weekend and assisted client with challenging distorted and negative thoughts about her being more weepy. Therapist elicited client's thoughts about treatment progress since starting PHP. Client Response:: Client reported she is feeling more weepy today which she stated makes her feel frustrated because she doesn't know why. Through further discussion client able to recognize she might be more weepy because she just got home yesterday after spending the weekend with her daughter and grandchild. Client reported she is a little frustrated that she is crying so much because the weekend with her daughter went really well. Client shared there was no conflicts throughout the whole weekned and she was able to refrain from saying certain comments that would have unneccasairly caused conflict. Client reported when she gets super weepy she hasn't found anything to help stop the crying. Client shared she has tried various distraction activites, but as soon as she stops the activity she starts crying again. When asked about her thought process when uncontrollably crying she stated she will think why am I crying; how can I end this; woe is me. With assistance from therapist client able to connect that her thought process could be maintaining the crying spell. Client stated the skills that help her the most currently are: thought log, recognizing cognitive distortions, and exercise. Client ientified progress since starting PHP level of care to include: increased awareness of distorted thoughts, coping skills, and symptoms. Client stated also progressed with understanding importance of self-care and has been incorporating self-care into her life more frequently. Risks/Concerns:: Client denies suicidal ideation, plan or intention to date. Progress Toward Goals/Plan:: Client has demonstrated progress with increased self-awareness of her distorted thought patterns with understanding of how distorted thoughts maintain anxious and depressive states. Client also putting forth more effort to incorporate self-care activities into her weekly routine including exercise, identifying positives from day, and relaxing activities. Cilent reports decrease in frequency and duration of depressed and anxious symptoms. Client to discharge from [facility] level of care and start [facility] level of care tomorrow. Client could benefit from continued reinforcement of healthy coping, consistently challenging distorted thoughts, and increasing emotional release activities. Time Stopped:: 12:48
--- NOTE | 2019-01-05 14:05 | BH.DS ---
Discharge Summary - Demographics Date of Admission:: 12/26/18 Discharge Date: 01/05/19 - Treatment Discharge Handout: Complete Discharge Handout with client on aftercare options and continuity of care.
--- NOTE | 2019-01-06 11:15 | BH.SGPN.GN ---
Behaviors/Verbalizations/Mental Status: []Client alert and oriented, neatly dressed and groomed. Eye contact good. Motor activity appropriate. Speech within normal limits. Affect constricted, mood irritable. Thoughts linear, logical, no signs of hallucinations or delusions Client Response/Progress/Benefit: []Client responded well to session, contributing to discussion and the activity, but near the end of session client appeared agitated. Client participated in the group activity and shared using different ideas and being flexible helped the group be successful. Client helped the group review the strategies to increase personal resilience. Client received a stress ball to help client remember the resilience factors. Client reported she would like to increase her resilience by increasing her positive thinking. Client stated she has been trying to do this, but at times struggles. Client?s small step towards this goal is to focus on small moments of mariusz during the day. Client appeared to benefit from setting a goal to increase her resilience. Progress noted as client continues to report consistent application of healthy coping skills. However, client can continue to challenge negative thinking that reinforces anxiety and depression.
--- NOTE | 2019-01-11 13:19 | BH.MDN_ITS ---
Multi-Disciplinary Note - Note 30-min Individual Time Started:: 12:17 Date: 01/05/19 Purpose of session/treatment goals addressed:: Purpose of session was to assess pt's current symptoms and stressors. Other topics: process weekend, increased awareness of thought patterns, and identifying progress since starting PHP. Eye Contact:: Good Motor Activity:: Appropriate Appearance:: Casual Speech:: Appropriate Mood:: Dysthymic - tearful Affect:: Congruent Thoughts:: Linear, Logical, No evidence of hallucinations/delusions noted Staff Interventions:: Therapist used open ended questions to elicit client's current symptoms and stressors. Therapist processed weekend and assisted client with challenging distorted and negative thoughts about her being more weepy. Therapist elicited client's thoughts about treatment progress since starting PHP. Client Response:: Client reported she is feeling more weepy today which she stated makes her feel frustrated because she doesn't know why. Through further discussion client able to recognize she might be more weepy because she just got home yesterday after spending the weekend with her daughter and grandchild. Client reported she is a little frustrated that she is crying so much because the weekend with her daughter went really well. Client shared there was no conflicts throughout the whole weekned and she was able to refrain from saying certain comments that would have unneccasairly caused conflict. Client reported when she gets super weepy she hasn't found anything to help stop the crying. Client shared she has tried various distraction activites, but as soon as she stops the activity she starts crying again. When asked about her thought process when uncontrollably crying she stated she will think why am I crying; how can I end this; woe is me. With assistance from therapist client able to connect that her thought process could be maintaining the crying spell. Client stated the skills that help her the most currently are: thought log, recognizing cogn itive distortions, and exercise. Client ientified progress since starting PHP level of care to include: increased awareness of distorted thoughts, coping skills, and symptoms. Client stated also progressed with understanding importance of self-care and has been incorporating self-care into her life more frequently. Risks/Concerns:: Client denies suicidal ideation, plan or intention to date. Progress Toward Goals/Plan:: Client has demonstrated progress with increased self-awareness of her distorted thought patterns with understanding of how dist orted thoughts maintain anxious and depressive states. Client also putting forth more effort to incorporate self-care activities into her weekly routine including exercise, identifying positives from day, and relaxing activities. Cilent reports decrease in frequency and duration of depressed and anxious symptoms. Client to discharge from [facility] level of care and start IOP level of care tomorrow. Client could benefit from continued reinforcement of healthy coping, consistently challenging distorted thoughts, and increasing emotional release activities. Time Stopped:: 12:48
--- NOTE | 2019-01-16 10:12 | BH.SGPN.GN ---
Behaviors/Verbalizations/Mental Status: [Client alert and oriented, casually dressed and groomed. Eye contact good. Motor activity appropriate. Speech within normal limits. Affect constricted, mood anxious, euthymic. Thoughts linear, logical, no signs of hallucinations or delusions. ] Client Response/Progress/Benefit: [Client responded well to session, active and providing good insight to discussion. Client connected with the group topic of crisis and did well to work with group to define crisis. Group identified examples of potential crisis to include unexpected loss, overwhelming stress, and hardships out of one?s control. Connected with discussion on how coping with crisis by using unhealthy coping skills could lead to additional personal crisis. Client shared personal crisis occurs when we don?t know how to deal with our stressors or feel unsupported. Group identified unhealthy coping skills to include; substance use, toxic relationships, overeating, avoidance, anger, and giving up. Group identified warning signs for crisis which included; isolating, increased anxiety, avoidance, agitation, minimizing, and impatience. Client completed the personal warning signs worksheet and identified crisis warning signs to include; negative thinking, irritability, lack of enjoyment, and low motivation. Benefited from group by increasing awareness of crisis and personal warning signs. Progress noted as client reports generalizing healthy coping skills, but she continues to struggle with managing emotions, specifically irritability, when things are out of her control.] Narrative Note: []
[2019-02-06 16:23] VITALS: BP 108/74; PULSE 70; RESP 14
== END 2019-01-05 14:00 | disposition home or self-care (01) ==
LOC: BHPHP 08:45
PROVIDERS: Family Provider Family Medicine; PCP Family Medicine; Referring Provider Psychiatry & Neurology Psychiatry; Visit Provider Psychiatry & Neurology Psychiatry
DX: F33.1 Major depressive disorder, recurrent, moderate (principal); F41.9 Anxiety disorder, unspecified
CPT/HCPCS: H0035; 90832; 90834; 90837; G0410

== ENCOUNTER 2019-01-06 09:00 | Outpatient (RCR) | payer BC, SELFPAY ==
--- NOTE | 2019-01-06 10:15 | BH.SGPN.GN ---
Behaviors/Verbalizations/Mental Status: []Pt eye contact good, casually dressed, motor activity appropriate, speech normal rate and tone, mood anxious, constricted affect, thoughts linear and intact, no evidence of delusions or hallucinations. Client Response/Progress/Benefit: []Pt listened attentively to peers? comments and contributed thoughts and ideas at times throughout session. Pt stated being open minded helps one have more flexible thinking. Pt agreed with peers it's important to be resilient so can keep moving forward towards life goals. Pt engaged in small group discussion about the various strategies that can help strengthen one's resilience. Pt seemed to benefit from increased awareness of what strategies can help strengthen resilience. Narrative Note: []
--- NOTE | 2019-01-06 16:06 | BH.MTP ---
Master Treatment Plan - Patient Information Program Physician:: Dr. Loredo Primary Therapist:: Kathy Henley, [facility] - Psychiatric Diagnoses Psychiatric Diagnoses:: Major Depressive Disorder, Recurrent, in partial remission. Unspecified Anxiety Diagnosis Code(s):: F33.41 - Estimated LOS Estimated LOS (in weeks):: 6 Problem/Goal #1 - Problem/Goal #1 Stated Goal:: Client will decrease depression, feeling of hopelessness, and passive thoughts of due to Major Depression Disorder through Intensive Outpatient Program. Description of Barriers: Pt's distorted thoughts, negative self-talk, high expectations of self, and low motivation could be barriers to treatment. Functional Impact: Pt's depressive and anxious symptoms impact pt's ability complete tasks and responsibilities at work and is currently on FMLA to get mental health treatment. Pt's personal relationships also impacted due to increased agitation and struggles with managing emotions at times. Pt started to get back to completing household tasks and responsibilities, however her low motivation still negatively impacts how much she can get done. Pt not functioning at baseline. Goal Relevant Strengths/Supports: Pt is resilient, intelligent, and verbalizes motivation to get better. Pt's is extremely supportive and per pt report he does his best to motivate her to make positive choices. - Objectives Objective #1 Stated Objective: Client will identify and replace 2-3 negative thinking patterns that reinforce depressive symptoms. Interventions: Assist the client in identifying, challenging, and replacing dysfunctional and distorted thoughts with positive, realistic thoughts. Discharge Criteria: Client will have achieved this goal when can identify at least 2 negative thinking patterns and replace thoughts with rational thoughts. Target Date: 02/17/19 Review Date: 02/03/19 Objective #2 Stated Objective: Pt will decrease depressive symptoms AEB pt?s score on the DSM 5 cross-cutting measure and improve pt?s daily functioning. Interventions: Through groups and individual therapy, pt will be provided with education on cognitive distortions, mistaken beliefs, and identifying and combating negative self-talk. Therapist will assist pt with getting back into the activities she once enjoyed as well as increasing healthy coping strategies. Discharge Criteria: Pt will have met this goal when pt?s score on the DSM 5 cross cutting measure for depression has been decreased and per pt?s report daily functioning has improved. Target Date: 02/17/19 Review Date: 02/03/19 Problem/Goal #2 - Problem/Goal #2 Stated Goal:: Client will reduce overall frequency, intensity, and duration of the anxiety so that daily functioning is not impaired. Description of Barriers: Pt's distorted thoughts, negative self-talk, high expectations of self, and low motivation could be barriers to treatment. Functional Impact: Pt's depressive and anxious symptoms impact pt's ability complete tasks and responsibilities at work and is currently on FMLA to get mental health treatment. Pt's personal relationships also impacted due to increased agitation and struggles with managing emotions at times. Pt started to get back to completing household tasks and responsibilities, however her low motivation still negatively impacts how much she can get done. Pt not functioning at baseline. Goal Relevant Strengths/Supports: Pt is resilient, intelligent, and verbalizes motivation to get better. Pt's is extremely supportive and per pt report he does his best to motivate her to make positive choices. - Objectives Objective #1 Stated Objective: Client will learn and utilize 2-3 healthy coping strategies to manage her anxious symptoms. Interventions: Therapist will help client develop insight into her anxiety triggers and help her find strategies to help manage her symptoms. Discharge Criteria: Client will have met this goal when can identify and has consistently utilized at least 2 healthy coping strategies that help manage her anxious symptoms Target Date: 02/17/19 Review Date: 02/03/19 Objective #2 Stated Objective: Pt will decrease anxious symptoms AEB pt?s score on the DSM 5 cross-cutting measure improve pt?s daily functioning. Interventions: Through groups and individual therapy, pt will be provided education about anxiety?s impact on body and common physiological reaction to anxiety. Therapist will teach pt appropriate breathing techniques and build healthy coping skills to manage daily anxieties. Discharge Criteria: Pt will have met this goal when pt?s score on the DSM 5 cross cutting measure for anxiety has been decreased and per pt?s report daily functioning has improved. Target Date: 02/17/19 Review Date: 02/03/19
--- NOTE | 2019-01-08 09:04 | BH.SGPN.GN ---
Behaviors/Verbalizations/Mental Status: [Eye contact good. Motor activity WNL. Appearance neat and casual, appropriately groomed. Speech appropriate rate and tone. Mood euthymic. Affect is full, bright. Thoughts linear and logical. No evidence of delusions or hallucinations. Reviewed daily check in sheet and no reports of suicidal ideations or intent] Client Response/Progress/Benefit: [Client receptive of session, providing positive input and support throughout. Client indicated that her current mood is ?happy? which she reflected is a major ?win? as client shared previous moods have been identified as overwhelmed or ?weepy?. Client identified that improvements in her overall mood include implementation of a thought log when she finds herself becoming increasingly anxious or overwhelmed. Client went on to discuss an additional mental health positive as using her ?day off? from group in a productive and mentally healthy way. Described going to the gym, challenging unhealthy thoughts during an ?icky phone call?, and having lunch with a friend. Indicated ongoing stressor as her ability to maintain progress and continue to apply healthy skills learned. Client benefited from the supportive of group environment and identifying various areas of progress over past few days. Recommended to continue IOP tx to prevent decompensation, maintain progress, as well as continue to reduce symptoms of anxiety.] Narrative Note: []
--- NOTE | 2019-01-08 10:20 | BH.SGPN.GN ---
Behaviors/Verbalizations/Mental Status: []Client alert and oriented, neatly dressed and groomed. Eye contact good. Motor activity appropriate. Speech within normal limits. Affect congruent, mood euthymic. Thoughts linear, logical, no signs of hallucinations or delusions. Client Response/Progress/Benefit: []Client responded well to session, positive contributions and insight. Client did not agree with the quote at first sharing, peace to her is ?no stress at all.? However, after group discussion, client able to recognize that it is unrealistic to have ?no stress at all? but it is possible to be able to find good in difficult situations. Client shared a person can experience internal and external conflict, and that conflict can impact a person?s mental health. Client stated fear and mind-reading have impacted how client responds to conflict. ?Client helped the group identify the different types of conflict resolution styles. Client reported she is either avoidant or competing. Client shared being competing has ?not been so good for me.? Client stated she is quick to respond rather than taking time to process her emotions. Client stated she would like to work on being slower to respond in conflict situations. Client appeared to benefit from gaining awareness of the different types of conflict resolution styles and how this impacts client?s mental health. Client to continue IOP as she has made progress with applying healthy coping skills, but she can continue to challenge negative thinking.
--- NOTE | 2019-01-08 11:20 | BH.SGPN.GN ---
Behaviors/Verbalizations/Mental Status: [Client maintained good eye contact ? at times appearing intense. Motor activity is appropriate. Appearance is neat and casual. Speech an appropriate rate and tone. Mood is euthymic, positive. Affect full, bright. Thoughts are linear and logical. No evidence of psychosis.] Client Response/Progress/Benefit: [Client actively engaged in both group discussion and activity portions of group. Client more engaged and positive than in previous groups. Client did well to work with group on identifying connections between barriers and supports for conflict resolution used in activity with personal approach to conflict. Client reflected on personal conflict style and indicated she can relate to the various styles of conflict resolution and indicated using different types in differing settings. Client worked with the group to identify barriers to effectively managing conflict and indicated barriers may include regulating emotions and being willing to compromise. Client able to connect with input provided by fellow participants and did well to work with the group on identifying strategies to promote better management of conflict. Reported that adjusting expectations and challenging perspective can be beneficial in resolving conflict. Benefited from group as he was able to increase insights regarding conflict and conflict resolution. Client displaying progress in reports of improved mood and increased positivity. Client recommended continued IOP tx to prevent decompensation and improve ability to challenge intrusive thinking, and implement healthy coping skills on a consistent basis.] Narrative Note: []
--- NOTE | 2019-01-09 10:10 | BH.SGPN.GN ---
Behaviors/Verbalizations/Mental Status: []Pt eye contact good, casually dressed, motor activity appropriate, speech normal rate and tone, mood anxious, constricted affect, thoughts linear and intact, no evidence of delusions or hallucinations. Client Response/Progress/Benefit: []Client listened attentively to peers and contributed thoughts and ideas to discussion at times. Client identified fear of the unknown to be barrier to making personal change because don't want to try something new and fail at it. Client connected with the various emotions discussed that can impact change process. Client seemed to benefit from learning about the stages of change and increased awareness of barriers that can get in the way of making a personal change. Narrative Note: []
--- NOTE | 2019-01-09 11:16 | BH.SGPN.GN ---
Behaviors/Verbalizations/Mental Status: [Client alert and oriented, casually and neatly dressed, appropriately groomed. Eye contact good ? at times intense. Motor activity WNL. Speech appropriate rate and tone. Affect congruent, mood euthymic and anxious. Thoughts linear, logical, no signs of hallucinations or delusions. ] Client Response/Progress/Benefit: [Client responded well to session, active participant in discussion AEB providing input and insight throughout. Client took on an observational role in activity portion, however did well to provide supportive feedback to peers as they completed the task. Client discussed the barriers faced in activity and able to make connections with barriers to change. Benefited from gaining information on Decisional Balance technique in overcoming ambivalence to change. Client able to apply this strategy to identify the pros and cons regarding a mental health change he is currently considering. Reports considering putting more emphasis on incorporating self-care into her regular routine in order to reduce stress. Reflected that this change will additionally improve her physical health and immune system. Progress made in client ability to identify potential strategies for preparing to make a change. Client to continue IOP to reduce stress related anxiety, prevent decompensation, and increase emotion regulation skills. ] Narrative Note: []
--- NOTE | 2019-01-10 17:52 | BH.MDN_ITS ---
Multi-Disciplinary Note - Note 45-min Individual Time Started:: 12:12 Date: 01/06/19 Purpose of session/treatment goals addressed:: Purpose of session was to elicit client's current symptoms and stressors. Other topics: review thought log, challenge thoughts, and identify schedule for client's first day off from attending program. Eye Contact:: Good Motor Activity:: Appropriate Appearance:: Casual Speech:: Appropriate Mood:: Anxious Affect:: Congruent Thoughts:: Linear, Logical, No evidence of hallucinations/delusions noted Staff Interventions:: Therapist used open ended questions to elicit client's current stressors and symptoms. Therapist reviewed thought log, assisted client with challenging distorted thoughts. Therapist assisted client with creating a schedule for tomorrow since she will not be attending program. Provided support by using active listening and providing support. Client Response:: Client reported yesterday was ok, elaboarting that she spent a good portion of her time coordinating with her mom different home remodeling things for her home. Client shared she didn't get up earlier enough to work out in the morning yesterday so she worked out for 20 minutes in the evening to stick the goal she created in yesterday's group. Client reported she wrote down two thoughts yesterday that she was ruminating about. Client shared yesterday her mom was supposed to call client back but never did. Client stated this is the second time her mom has not called back despite telling client she would. Client reported she started to think what did I do wrong? which resulted in client feeling anxious. Client shared with self-talk she was able to eventually stop ruminating. With assistance from therapist client agreed she could directly ask her mom if client has done anything wrong instead of worrying about something that could be potentially wrong. Client stated another situation was she couldn't find some old items that were her sons and she started to panic for at least 20 minutes. Client reported her thoughts were HOw could I do this? and I'm such an idiot. Daisy stated she eventually found what she was looking for and realized after the fact she made herself panic over nothing. Wit h assitance client recognizes she needs to utilize her healthy calming skills when starts to feel anxious so she can think more clearly and not stress her body out for no reason. Client worked with therapist to create a schedule for the day so client doesn't have too much down time. Risks/Concerns:: Client denies suicidal ideation, plan or intention to date. Progress Toward Goals/Plan:: Progress noted with client able to recognize how her thought patterns were increasing her anxious symptoms. Client also following through with established goal of 20 minutes of exercise daily. Client to continue IOP level of care to maintain gains, continue to challenge and reframe unhelpful thought patterns and prevent decompensation. Time Stopped:: 13:00
--- NOTE | 2019-01-13 09:05 | BH.SGPN.GN ---
Behaviors/Verbalizations/Mental Status: []Client alert and oriented, neatly dressed and groomed. Eye contact good. Motor activity appropriate. Speech within normal limits. Affect congruent, mood euthymic. Thoughts linear, logical, no signs of hallucinations or delusions. Reviewed client?s symptom tracker, no risk for suicidal ideation, plan, or intent as of 01/13/18. Client Response/Progress/Benefit: []Client responded well to session, positive contributions and offering support. Client reports feeling ?improved and happy? as client was able to overcome a setback yesterday. Client shared yesterday was ?the worst I?ve felt since starting the program.? However, despite feeling bad mentally and physically, client stated she made herself change her clothes and make her bed ?which was huge.? Client reported she has accomplished her goal set in group last week of working out seven days in a row. Client shared her helped her accomplish this goal by providing her support. Client?s current barrier is her relationship with her mother. Client stated ?she?s been through depression and what she says makes me feel worse.? Client reported she recognizes she needs to have a conversation with her mother about how to provide client better mental health support, but client feels anxious. Client shared she plans to prepare for the conversation and have it while she is still in IOP ?so I have support before and after.? Client appeared to benefit from reflecting on her progress and processing barriers. Client to continue IOP to further promote gains and increase mood stability.
--- NOTE | 2019-01-13 10:12 | BH.SGPN.GN ---
Behaviors/Verbalizations/Mental Status: [Eye contact is good. Motor activity is appropriate. Appearance is casual, neat. Speech is Appropriate. Mood is agitated, anxious. Affect is congruent. Thoughts are linear and logical. No evidence of psychosis. ]] Client Response/Progress/Benefit: [Pt was an engaged participant in activity as evidenced by pt providing input and listened to others. Group worked together to come up with common negative forces in their lives which can hold them back from growth. Negative forces included: toxic relationships, negative thoughts, low motivation, and past experiences. Group then worked together to identify common positive forces which help us grow. These included: Healthy coping skills, positive support, self-care, patience, and therapy. Pt reported that focusing on small ways to learn and grow from the experiences of those around us can aid in improving positive forces as well. Pt was attentive during psychoeducation on the importance of utilizing many aspects of positive forces to help one grow. Benefited from group with increased insight and awareness on the impact of negative and positive forces on mental wellness.] Narrative Note: []
--- NOTE | 2019-01-13 11:18 | BH.SGPN.GN ---
Behaviors/Verbalizations/Mental Status: []Pt eye contact good, casually dressed, motor activity appropriate, speech normal rate and tone, mood anxious, congruent affect, thoughts linear and intact, no evidence of delusions or hallucinations. Client Response/Progress/Benefit: []Client listened attentively to peers and contributed thoughts and ideas to discussion. Client identified positive forces that help her progress toward goals in include: challenging negative and distorted thought patterns, accepting help, self-care, wanting to be her best self, and grandchildren. Client identified negative forces that hold her back from progress to include: Chron's disease, bad weather, low motivation, not having enough time, feeling a race against the clock, and loneliness. Client stated challenging negative thoughts to be strongest positive force and Chron's disease and low motivation to be the negative forces in her life that have the most power. Client seemed to benefit from increased awareness of her personal positive and negative forces in life. Client to continue IOP level of care to maintain gains, increase healthy coping and prevent decompensation. Narrative Note: []
--- NOTE | 2019-01-15 10:10 | BH.SGPN.GN ---
Behaviors/Verbalizations/Mental Status: []Client alert and oriented, neatly dressed and groomed. Eye contact good. Motor activity appropriate. Speech within normal limits. Affect congruent, mood euthymic, anxious. Thoughts linear, logical, no signs of hallucinations or delusions. Client Response/Progress/Benefit: []Client responded well to session, actively engaged. Client connected with the quote and shared ?we have to be a part of own support system.? Client agreed with peers that having social support is important for increasing mental wellness. Client shared barriers to seeking support can include fear of rejection and reaching out to supports that ?don?t know what they are talking about or make you feel worse.? Client described a time when she reached out to her mother for support and her mother invalidated her. Client identified benefits of social support to be encouragement, listening, and guidance. Client was engaged during the group activity. Client was able to recognize that for the group to be successful the group had to communicate and work to keep the balance. Client appeared to benefit from gaining awareness of the barriers keeping her from seeking social support. Progress noted in client?s report of generalization of coping skills to manage depression, but she can continue to improve mood stability through IOP.
--- NOTE | 2019-01-15 11:15 | BH.SGPN.GN ---
Behaviors/Verbalizations/Mental Status: [Pt eye contact good at times intense, casually and neatly dressed, motor activity appropriate, speech normal rate and tone, mood anxious and euthymic, congruent affect, thoughts linear and intact, no evidence of delusions or hallucinations.]] Client Response/Progress/Benefit: [Client receptive of session and provided input to discussion as well as examples throughout. Client worked with the group to make connections between barriers faced in the challenge activity and strategies for managing these barriers with utilizing social supports in daily life. Shared connection between the barrier of wanting to move too quickly in activity and wanting our supports to be able to help us quickly. Client reflected that a personal barrier in using her current supports is keeping from becoming discouraged when a support is unwilling or unable to provide the assistance we need and provided an example related to a friend not being receptive of client mental health struggle. Client contributed to discussion about the different types of support and benefits different types of support can provide. Client provided examples of spiritual supports such as yoga. Client worked with the group to identify strategies for improving development of new supports and better utilization of current supports. She indicated that setting goals regarding use of supports can aid in decreasing stigma and encourage accepting support. Client seemed to benefit from identifying a type of support she would like to improve upon and creating actionable steps to promote follow-through. Client to continue IOP level of care to prevent decompensation, increase use of healthy supports, improve thought challenge and anxiety management skills.] ] Narrative Note: []
--- NOTE | 2019-01-19 09:08 | BH.SGPN.GN ---
Behaviors/Verbalizations/Mental Status: [Eye contact good. Motor activity WNL. Appearance casual and neat. Speech Appropriate rate and tone. Mood anxious, euthymic. Affect is congruent. Thoughts linear and logical. No evidence of delusions or hallucinations. Reviewed daily check in sheet and no reports of suicidal ideations or intent] Client Response/Progress/Benefit: [Client receptive of session, attentive as others discussed and providing input throughout. Client indicated current mood as ?hopeful? and shared feeling positive despite some anxiety this morning. Client identified current mental health wins as practicing a balance between challenging herself to work towards goals of running more consistently despite depression and self forgiveness if unable to do as much as she would like. Client shared that although she did not want to go run at all, she did well to ?challenge my thoughts and do what I can? and settled for striking a balance between running and hiking. Client indicated that her has been very helpful in encouraging her to continue to work towards her goals without pressuring her to do more than she is able to at that time. Client expressed a current stressor as leaving to visit with her mother in [place] later this week and described being anxious as the relationship tends to be toxic. Client benefitted from group support and coping suggestions. She is displaying progress in her ability to better manage anxiety without escalating to panic or irritability. Client recommended continued IOP tx to improve self- anxiety management, prevent decompensation, and continue to promote healthy coping behaviors. ] Narrative Note: []
--- NOTE | 2019-01-19 10:15 | BH.SGPN.GN ---
Behaviors/Verbalizations/Mental Status: []Pt eye contact good, casually dressed, motor activity appropriate, speech normal rate and tone, mood anxious, congruent affect, thoughts linear and intact, no evidence of delusions or hallucinations. Client Response/Progress/Benefit: []Pt passive participant as shown by pt listening attentively to peers and contributed thoughts and ideas if elicited pt therapist. Pt reported feeling hopeless can make it challenging to take action towards making a positive change because have difficulty seeing that there could be positive in life. Pt identified things she wants to take back control over to include: anger, hopelessness, high expectations of how events porcelain turner, guilt, grief, judgements, negative self-talk, being close-minded, low energy, and low motivation. Pt became tearful when sharing about what she'd like to take back control over, which demonstrates progress with pt being willing to be vulnerable to the group which tends to be a challenge for pt. Pt seemed to benefit from increased awareness of what she believes has too much power in her life. Narrative Note: []
--- NOTE | 2019-01-19 11:16 | BH.SGPN.GN ---
Behaviors/Verbalizations/Mental Status: []Client alert and oriented, neatly dressed and groomed. Eye contact good. Motor activity appropriate. Speech within normal limits. Affect congruent, mood dysthymic, anxious. Thoughts linear, logical, no signs of hallucinations or delusions. Client Response/Progress/Benefit: []Client responded well to session, quiet, but engaged when prompted. Client connected with the zones of action and shared it is important to push oneself, but not overload oneself. Client discussed the barriers that could prevent her from accomplishing her goal such as low energy and feeling down. Client began creating a 30-day action plan to reduce ?the cold and darkness I feel.? Client?s motivator for reducing this is to ?I want to feel warm and light again.? Client?s goal for the first week is to be active once a day for 20-30 minutes and to listen to uplifting music. For the second week client is going to maintain being active and begin a gratitude log by writing three things she is grateful for every day. Client was receptive to ideas for gratitude logs from the group. Client stated showing her her plan will keep her motivated and that he will provide positive support. Client appeared to benefit from creating small SMART goals to reduce her depressive symptoms. Progress noted as client has been consistent with applying coping skills, but she continues to struggle with mood stability at times.
--- NOTE | 2019-01-19 12:55 | BH.MDN_ITS ---
Multi-Disciplinary Note - Note 30-min Individual Time Started:: 09:30 Date: 01/09/19 Purpose of session/treatment goals addressed:: Purpose of session was to assess pt's current symptoms and stressors. Other topics: reviewing day off IOP and identifying weekend plans. Eye Contact:: Good Motor Activity:: Appropriate Appearance:: Neat Speech:: Appropriate Mood:: Euthymic Affect:: Congruent Thoughts:: Linear, Logical, No evidence of hallucinations/delusions noted Staff Interventions:: Therapist used open ended questions to elicit pt's current symptoms and stressors. Therapist processed pt's first day off attending IOP, which has been source of anxiety for pt. Therapist encouraged pt to start expanding her emotional release coping skills, discussed potential consequences of only having one way to cope. Therapist collaborated with pt to identify w eekend plan. Client Response:: Pt reported her first day off from IOP went really well. Pt stated she was able to be productive throughout the day and successfully made several stressful phone calls. Pt shared she did some of the things from the schedule she created, but deviated when unexpected things occurred. Pt stated overall being home went better than she had initially expectated. Pt reported was the best I've felt in a long time. Pt stated she was in a positive mood, felt energized, and had minimal anxiety. Pt shared she felt disappointed this morning when she woke up catastrophizing about various topics. Pt stated she doesn't understand how she could go from having such a great day to waking up feeling anxious. Pt shared this morning she went to the gym as her way of managing the anxious thought patterns. Pt agreed with therapist she needs to focus on finding other activities or skills that can help her cope instead of just exercise because if there is a time she can't exercise due to physical limitations she won't know what to do. Pt shared this weekend she plans to hike/run with her and is having a game night with her sons and their girlfriends. Pt stated some anxiety about the game night, but is excited to spend time with her kids. Pt shared she will put forth effort to focus on doing some self-care activities this weekend. Risks/Concerns:: pt denies suicidal ideation, plan or intention to date. Progress Toward Goals/Plan:: Pt making progress with reporting being able to manage her anxious thinking this morning by going to the gym. Progress noted with pt's increased awareness of distorted thought patterns, being able to work through anxiety when not able to attend IOP, and being productie. Pt continuing to struggle with all or nothing thinking, negative self-talk, and worries about interacting with family out of fear she will mess up. Pt to continue IOP level of care to decrease anxiety, increase repertoire of healthy coping, and prevent decompensation. Time Stopped:: 09:58
--- NOTE | 2019-01-19 12:57 | BH.MDN_ITS ---
Multi-Disciplinary Note - Note 45-min Individual Time Started:: 09:07 Date: 01/16/19 Purpose of session/treatment goals addressed:: Purpose of session was to assess pt's current symptoms and stressors. Other topics: challenging negative and distorted thoughts, plan for weekend, and problem solving for upcoming trip to visit pt's mom. Eye Contact:: Good Motor Activity:: Appropriate Appearance:: Casual Speech:: Appropriate Mood:: Anxious, Other - tearful Affect:: Congruent Thoughts:: Linear, Logical, No evidence of hallucinations/delusions noted Staff Interventions:: Therapist used open ended questions to elicit pt's current symptoms and stressors. Therapist processed how being sick can impact mental health. Therapist challenged pt's core belief about appearing weak if can't push through a cold. Therapist elicited pt's plans for weekend, highlighting importanc of pt taking care of needs and allowing her body to rest. Therapist assisted pt with problem solving upcoming visit to pt's moms next week. Client Response:: Pt reported she has not had a very good week. Pt stated she has been feeling physically unwell, headache almost everyday, and decreased appetite. Pt reported she struggles with staying positive or using her skills when she doesn't feel good. Pt reported she doesn't like being sick because she fears she is going to have to cancel attending IOP session which pt stated makes her anxious because she might miss something. Pt stated the worry about missing something has been a belief she has had for many years and contributes to pt not calling off work when sick. Pt shared she believes if she has to take off work or miss IOP she is not fulfilling her duties and doesn't want to appear weak. With assistance from therapist pt able to identify her viewpoint that she is weak for taking care of herself is distorted because she recognizes now the importance of taking care of herself. Pt shared this weekend she will focus on not pushing herself by listening to her body and resting when she needs it. Pt shared on Saturday she is flying to visit her mom in [place]. Pt reported she is anxious about how the trip will be because her mom can be unpredictable. Pt able to identify some activities and things she can do to take care of her needs when at her moms house. Risks/Concerns:: Pt denies suicidal ideation, plan or intention to date. Progress Toward Goals/Plan:: Pt progress hindered this week due to pt being physically sick. Pt tends to struggle with utilizing her healthy skills when she isn't feeling well. Pt now recognizes the importance of taking care of herself when she is sick instead of pushing herself to keep going, which pt identifies makes things worse. Pt to continue IOP level of care to decrease anxiety, increase healthy coping even when sick, and prevent decompensation. Time Stopped:: 09:55
--- NOTE | 2019-01-20 09:05 | BH.SGPN.GN ---
Behaviors/Verbalizations/Mental Status: []Pt eye contact good, casually dressed, motor activity appropriate, speech normal rate and tone, mood anxious, constricted affect, thoughts linear and intact, no evidence of delusions or hallucinations. Reviewed client?s symptom tracker, no signs of suicidal ideation, plan, or intent as of today. Client Response/Progress/Benefit: []Pt attentively listened to peers and shared thoughts and feelings. Pt reported mental health wins to include: exercising this morning, ripping the carpet up last night, and doing laundry. Pt stated she is feeling anxious and stressed because she is leaving tomorrow to visit her mom out of state. Pt expressed worry that she doesn't know how her mom is going to act. Pt stated she is bringing several exercise items with her so she can focus on self-care. Pt seemed to benefit from support from peers. Pt to continue IOP level of care to decrease anxiety, increase use of healthy coping and prevent decompensation. Narrative Note: []
--- NOTE | 2019-01-20 10:13 | BH.SGPN.GN ---
Behaviors/Verbalizations/Mental Status: []Client alert and oriented, neatly dressed and groomed. Eye contact good. Motor activity appropriate. Speech soft. Affect constricted, mood anxious. Thoughts linear, logical, no signs of hallucinations or delusions. Client Response/Progress/Benefit: []Client responded well to session, quiet, but taking notes. Client connected with the topic of failure and famous people that have overcome setbacks. Client nodded that failure is not reaching a goal and that how one views failure can impact mental health and progress. ?Client agreed that people can view failure in an all or nothing mindset. Client nodded that fear of failure can lead to giving up, worse mental health, and self-destructive behavior. Client stated it is possible to overcome fear of failure. Client engaged in a group activity that encouraged the group to overcome fear of failure and challenge their perspective of failure. Client was positive and provided verbal direction to group members. Client appeared to benefit from gaining awareness of how fear of failure negatively impacts mental health. Client is showing progress in using thought challenging and staying active. However, she continues to struggle with cognitive distortions that reinforce anxiety and depression.
--- NOTE | 2019-01-20 11:15 | BH.SGPN.GN ---
Behaviors/Verbalizations/Mental Status: [] Eye contact is good. Motor activity is appropriate. Appearance is casual. Speech is Appropriate. Mood is depressed. Affect is flat. Thoughts are linear and logical. No evidence of psychosis. Client Response/Progress/Benefit: [] Pt was an active participant in group discussion and activity. Appeared attentive and Completed worksheet. Group identified strategies to overcome fear of failure which included; increased communication, persistence, asking for help, using a sense of humor, re-evaluating expectations and goals, identifying wants vs needs and redefining failure. On the worksheet pt re-defined failure as; trying, setting a goal, and growth are more important than completion of the goal. Reports that fear of failure impacted her by causing her not to try and beating herself up for failing. Benefited from group by identifying how fear of failure has impacted them as well as strategies to overcome fear of failure. Will continue in IOP to maintain safety, increase functioning, and prevent decompensation. Narrative Note: []
--- NOTE | 2019-01-21 09:03 | BH.SGPN.GN ---
Behaviors/Verbalizations/Mental Status: []Client alert and oriented, neatly dressed and groomed. Eye contact good. Motor activity restless AEB fidgeting with her purse. Speech within normal limits. Affect congruent-eyes red from crying, mood anxious Thoughts linear, logical, no signs of hallucinations or delusions. Reviewed client?s symptom tracker, no risk for suicidal ideation, plan, or intent as of 01/21/19. Client Response/Progress/Benefit: []Client responded well to session, visibly anxious, but receptive to feedback. Client reports feeling ?anxious? today as client is leaving this afternoon to fly out and visit with her mother in [place]. Client told the group that her relationship with her mother is complicated and in the past client has left their visits abruptly. Client shared she wants to have a conversation with her mother about how to more effectively communicate and provide support to client in regard to mental health. One of client?s mental health positives is that she is going to write out what she wants to say to her mother. Client?s other mental health positives include reducing anxiety by preparing for her flight/trip and getting acupuncture yesterday. Client stated her friend told her that client can call at any time if client begins to feel overwhelmed on her trip. Client appeared to benefit from verbally processing her stressor and reminding herself of solutions. Client showing progress by her reports of improved communication and use of coping skills. Client to continue IOP to prevent decompensation, increase emotional regulation, and challenge negative thinking that reinforces mental health symptoms.
--- NOTE | 2019-01-21 10:27 | BH.SGPN.GN ---
Behaviors/Verbalizations/Mental Status: [Client eye contact good, grooming and attire casual and neat, motor activity appropriate, speech normal rate and tone, mood anxious, congruent affect, thoughts linear and intact, no evidence of delusions or hallucinations] Client Response/Progress/Benefit: [Client receptive of session, attentive to discussion and provided input throughout. Client reflected upon the quote and indicated that she struggling to believe we always have the power to choose. Provided example of not choosing to have Chron?s disease. Client did well to respond to being challenged by peers that although we may not choose what happens to us, we have the power to choose how we respond to it. Client appeared to benefit from group discussion regarding what barriers impact ability to ?choose a different path? and make healthier choices. Client reflected that not knowing what the other choices we have can cause us to stay ?stuck? on one path by default. Connected with the ?Chapters of My Life? poem and worked with the group to analyze how various chapters described related to accepting personal role in making positive mental health changes. Client identified that when we reach the chapter in our life where we?ve gained acceptance we are more capable and willing to make healthy changes. Progress in client ability to connect materials to own mental health and openness to challenging her perspective. Recommended continued tx to promote gains made, improve symptom management, and prevent decompensating.] Narrative Note: []
--- NOTE | 2019-01-21 11:25 | BH.SGPN.GN ---
Behaviors/Verbalizations/Mental Status: [] Eye contact is good. Motor activity is appropriate. Appearance is neat. Speech is Appropriate. Mood is depressed. Affect is flat. Thoughts are linear and logical. No evidence of psychosis.Tearful at times. Client Response/Progress/Benefit: [] Pt was an active participant in group discussion and activity. Worked within small group to complete WDEP worksheet. Identified want or goal as to have my previous life back which was being active, happy, and productive Evaluated her progress towards want or goal stating that she is currently challenging thoughts, completing self-care, and celebrating wins. Feels progress is occurring however its slow. Developed plan to move herself forward which involves a 30 day plan of daily positive tasks. Benefited from group as she was able to evaluate behaviors which are keeping her stuck and develop plan to move forward. Will continue in IOP to prevent decompensation, decrease depressive symptoms, and increase functioning. Narrative Note: []
--- NOTE | 2019-01-21 14:21 | BH.MDN ---
Multi-Disciplinary Note - Note 30-min Individual Time Started:: 12:23 Date: 01/21/19 Purpose of session/treatment goals addressed:: Purpose of session was to assess pt's current symptoms and stressors. Other topics: problem solved and planned for pt's trip to visit her mother. Eye Contact:: Good Motor Activity:: Appropriate Appearance:: Casual Speech:: Appropriate Mood:: Anxious, Depressed Affect:: Congruent Thoughts:: Linear, Logical, No evidence of hallucinations/delusions noted Staff Interventions:: Therapist used open ended questions to elicit pt's current symptoms and stressors. Therapist processed group session, assisting pt with focusing on what progress she has made. Therapist worked collaboratively with pt to identify tentative plan for pt's trip to visit her mother for the next 5 days. Therapist provided support by using active listening. Client Response:: Pt reported she has had an emotional day which pt attributes to being anxious about leaving today to visit her mother. Pt shared she started the day off emotionally because she saw a social media post about the anniversary of someone's suicide. Pt stated the most made her very emotional because she never wants her kids to have to deal with a parents suicide, which pt reported motivated her to keep fighting. Pt reported in group she was emotional because when asked what she wants all she could think is she wants myself back. With assistance from therapist pt able to identify she has been moving towards her goals by accomplishing her set goals, reframing distortions, and focusing on positives from each day. Pt reported she is anxious about leaving for her trip to visit her mother for the next 5 days. Pt shared she plans to write down several questions she'd like to discuss with her mom which she has been putting off for awhile. Pt stated she will remember to pick her battles, engage in self-care, directly communicate, and set boundaries. Risks/Concerns:: Pt denies suicidal ideation, plan or intention to date. Progress Toward Goals/Plan:: Pt progressing with improved self-awareness about her distorted thoughts and trying to reframe/challenge. Pt following through with identified goals from individual/group sessions, identifying positives from each day, and identifying that she is feeling more hopeful. Pt continuing to have uncontrollable crying at times, but at a reduced frequency and duration. Pt to continue IOP level of care to decrease anxiety, increase utilization of healthy coping and prevent decompensation. Time Stopped:: 12:57
--- NOTE | 2019-01-21 16:06 | BH.MTP_ITS ---
Master Treatment Plan - Patient Information Program Physician:: Dr. Loredo Primary Therapist:: Kathy Henley, [facility] - Psychiatric Diagnoses Psychiatric Diagnoses:: Major Depressive Disorder, Recurrent, in partial remission. Unspecified Anxiety Diagnosis Code(s):: F33.41 - Estimated LOS Estimated LOS (in weeks):: 6 Problem/Goal #1 - Problem/Goal #1 Stated Goal:: Client will decrease depression, feeling of hopelessness, and passive thoughts of due to Major Depression Disorder through Intensive Outpatient Program. Description of Barriers: Pt's distorted thoughts, negative self-talk, high expectations of self, and low motivation could be barriers to treatment. Functional Impact: Pt's depressive and anxious symptoms impact pt's ability complete tasks and responsibilities at work and is currently on FMLA to get mental health treatment. Pt's personal relationships also impacted due to increased agitation and struggles with managing emotions at times. Pt started to get back to completing household tasks and responsibilities, however her low motivation still negatively impacts how much she can get done. Pt not functioning at baseline. Goal Relevant Strengths/Supports: Pt is resilient, intelligent, and verbalizes motivation to get better. Pt's is extremely supportive and per pt report he does his best to motivate her to make positive choices. - Objectives Objective #1 Stated Objective: Client will identify and replace 2-3 negative thinking patterns that reinforce depressive symptoms. Interventions: Assist the client in identifying, challenging, and replacing dysfunctional and distorted thoughts with positive, realistic thoughts. Discharge Criteria: Client will have achieved this goal when can identify at le ast 2 negative thinking patterns and replace thoughts with rational thoughts. Target Date: 02/17/19 Review Date: 02/03/19 Objective #2 Stated Objective: Pt will decrease depressive symptoms AEB pt?s score on the DSM 5 cross-cutting measure and improve pt?s daily functioning. Interventions: Through groups and individual therapy, pt will be provided with education on cognitive distortions, mistaken beliefs, and identifying and combating negative self-talk. Therapist will assist pt with getting back into the activities she once enjoyed as well as increasing healthy coping strategies. Discharge Criteria: Pt will have met this goal when pt?s score on the DSM 5 cros s cutting measure for depression has been decreased and per pt?s report daily functioning has improved. Target Date: 02/17/19 Review Date: 02/03/19 Problem/Goal #2 - Problem/Goal #2 Stated Goal:: Client will reduce overall frequency, intensity, and duration of the anxiety so that daily functioning is not impaired. Description of Barriers: Pt's distorted thoughts, negative self-talk, high expectations of self, and low motivation could be barriers to treatment. Functional Impact: Pt's depressive and anxious symptoms impact pt's ability complete tasks and responsibilities at work and is currently on FMLA to get mental health treatment. Pt's personal relationships also impacted due to increased agitation and struggles with managing emotions at times. Pt started to get back to completing household tasks and responsibilities, however her low motivation still negatively impacts how much she can get done. Pt not functioning at baseline. Goal Relevant Strengths/Supports: Pt is resilient, intelligent, and verbalizes motivation to get better. Pt's is extremely supportive and per pt report he does his best to motivate her to make positive choices. - Objectives Objective #1 Stated Objective: Client will learn and utilize 2-3 healthy coping strategies to manage her anxious symptoms. Interventions: Therapist will help client develop insight into her anxiety triggers and help her find strategies to help manage her symptoms. Discharge Criteria: Client will have met this goal when can identify and has consistently utilized at least 2 healthy coping strategies that help manage her anxious symptoms Target Date: 02/17/19 Review Date: 02/03/19 Objective #2 Stated Objective: Pt will decrease anxious symptoms AEB pt?s score on the DSM 5 cross-cutting measure improve pt?s daily functioning. Interventions: Through groups and individual therapy, pt will be provided education about anxiety?s impact on body and common physiological reaction to anxiety. Therapist will teach pt appropriate breathing techniques and build healthy coping skills to manage daily anxieties. Discharge Criteria: Pt will have met this goal when pt?s score on the DSM 5 cross cutting measure for anxiety has been decreased and per pt?s report daily functioning has improved. Target Date: 02/17/19 Review Date: 02/03/19
== END 2019-01-22 23:59 | disposition home or self-care (01) ==
LOC: BHIOP 09:00
PROVIDERS: Family Provider Family Medicine; PCP Family Medicine; Referring Provider Psychiatry & Neurology Psychiatry; Visit Provider Psychiatry & Neurology Psychiatry
DX: F33.41 Major depressive disorder, recurrent, in partial remission (principal); F41.9 Anxiety disorder, unspecified
CPT/HCPCS: H0035; 90832; 90853

== ENCOUNTER 2019-01-28 10:41 | Emergency (ER) | payer BC, SELFPAY ==
[2019-01-28] VITALS (7 sets, daily range): BP systolic 118–145; BP diastolic 63–88; PULSE 79–95; RESP 14–18; TEMP 37; O2SAT 95–100; BMI 29.9
--- NOTE | 2019-01-28 10:45 | NURSING ---
UPON TRIAGE NURSE NOTED RIGHT SIDED DEFICIT ACCOMPANYING HEADACHE, SORE, THROAT, AND REPORTED FEVER PER . PT NOT VERBAL BUT COMMUNICATING WITH LEFT HAND AND POINTING. ER DR GOLDSTEIN.
--- NOTE | 2019-01-28 11:15 | EKG12_ITS ---
Test Reason : STROKE Blood Pressure : / mmHG Vent. Rate : 096 BPM Atrial Rate : 096 BPM P-R Int : 170 ms QRS Dur : 076 ms QT Int : 354 ms P-R-T Axes : 007 057 -03 degrees QTc Int : 447 ms Normal sinus rhythm Nonspecific T wave abnormality Abnormal ECG Confirmed by YEN BOURNE, MICHAEL ([id number]), copy editor NIRAJ JENSEN ([id number]) on 02/03/2019 8:50:37 AM Referred By: LENO Confirmed By:MICHAEL BARLOW MD
--- NOTE | 2019-01-28 11:15 | CT_ITS ---
We are attempting to reach Mitchel Mcdowell MD to discuss findings. An addendum with communication details will be sent when the communication is complete. STUDY: CT BRAIN WITHOUT CONTRAST REASON FOR EXAM: Female, 53 years old. UNABLE TO SPEAK RADIATION DOSAGE (If Supplied By Facility): CTDIvol = ( 44.99 ) mGy, DLP = ( 796.11 ) mGycm TECHNIQUE: Transaxial CT imaging of the brain was performed without administration of intravenous contrast material. Individualized dose optimization techniques were used for this CT. COMPARISON: None. FINDINGS: Normal soft tissue structures. Normal calvarium. Normal size ventricles and extra-axial spaces for the patient's age. Normal white matter tracts of the cerebral hemispheres. Normal basal ganglia and thalami. Normal brainstem. Normal cerebellum. There is no intracranial hemorrhage. There are no findings of an acute ischemic infarction. There is mucoperiosteal inflammatory disease of the paranasal sinuses consistent with moderate chronic sinusitis. CT/Brain/Head without Contrast IMPRESSION: No acute intracranial abnormality. Paranasal sinus disease. Electronically Signed: Tonia Ruiz MD at 11:42 EST Tel , Service support ,
--- NOTE | 2019-01-28 11:16 | NURSING ---
STROKE ALERT CALLED.
--- NOTE | 2019-01-28 11:20 | NURSING ---
NO OLD EKGS
--- NOTE | 2019-01-28 11:27 | CT_ITS ---
We are attempting to reach Mitchel Mcdowell MD to discuss findings. An addendum with communication details will be sent when the communication is complete. STUDY: CTA OF THE BRAIN REASON FOR EXAM: Female, 53 years old. UNABLE TO SPEAK. RADIATION DOSAGE (If Supplied By Facility): CTDIvol = ( 19.21 ) mGy, DLP = ( 648.48 ) mGycm TECHNIQUE: CT angiography was performed with a multi-detector CT scanner. Data acquisition was obtained from the skull base through the vertex following intravenous administration of Isovue 370 100 IV. MIP images were reconstructed from the axial data set. Post-processing of the angiographic images was performed, with multiplanar reformation and 3D reconstruction. Individualized dose optimization techniques were used for this CT. COMPARISON: None. FINDINGS: Normal bilateral petrous carotid arteries. Normal right cavernous carotid artery with a normal supraclinoid bifurcation. Normal left cavernous carotid artery with a normal supraclinoid bifurcation. Normal right A1 segments of the anterior cerebral artery. Normal left A1 segments of the anterior cerebral artery. Normal intact anterior communicating artery (ACOM). Normal bilateral A2 segments of the anterior cerebral arteries. Normal right M1 and M2 segments of the middle cerebral arteries, with a normal M1 bifurcation. Normal left M1 and M2 segments of the middle cerebral arteries, with a normal M1 bifurcation. Normal right posterior communicating artery (PCOM). 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 Normal bilateral vertebral arteries. Normal basilar artery with a normal basilar bifurcation. The visualized bilateral superior cerebellar (SCA) arteries are normal. Normal bilateral P1, P2 and visualized P3 segments of the posterior cerebral arteries. There is no demonstrated aneurysm of the [place] of [place]. There is no demonstrated abnormality of the visualized brain. IMPRESSION: Unremarkable [place] without a demonstrated aneurysm or hemodynamically significant stenosis. Electronically Signed: Tonia Ruiz MD at 12:01 EST Tel , Service support , STUDY: CTA NECK WITH CONTRAST REASON FOR EXAM: Female, 53 years old. UNABLE TO SPEAK. RADIATION DOSAGE (If Supplied By Facility): CTDIvol = ( 19.21 ) mGy, DLP = ( 648.48 ) mGycm TECHNIQUE: CT angiography with multi-detector data acquisition was performed from the aortic arch to the skull base following intravenous administration of Isovue 370 100 IV. MIP images were reconstructed from the axial data set. Post-processing of the angiographic images was performed, with multiplanar reformation and 3D reconstruction. Individualized dose optimization techniques were used for this CT. COMPARISON: None. FINDINGS: AORTIC ARCH: Normal visualized aortic arch. Normal origins of the brachiocephalic, left common carotid, and left subclavian arteries. RIGHT CAROTID ARTERIES: Normal right common carotid artery (CCA). There is minimal atherosclerotic plaque formation with minimal narrowing of the right carotid bulb. Normal origin of the right internal carotid (ICA) artery without a hemodynamically significant stenosis. Normal visualized cervical portion of the right internal carotid artery. Normal origin of the right external carotid artery (ECA). LEFT CAROTID ARTERIES: Normal left common carotid artery (CCA). There is minimal atherosclerotic plaque formation with minimal narrowing of the left carotid bulb. Normal origin of the left internal carotid (ICA) artery without a hemodynamically significant stenosis. Normal visualized cervical portion of the left internal carotid artery. Normal origin of the left external carotid artery (ECA). VERTEBRAL ARTERIES: Normal bilateral vertebral arteries. CT/CTA Head W/WO Contrast IMPRESSION: No occlusion or significant stenosis. Minimal atherosclerotic disease. Electronically Signed: Tonia Ruiz MD at 12:03 EST Tel , Service support ,
--- NOTE | 2019-01-28 11:28 | CT_ITS ---
We are attempting to reach Mitchel Mcdowell MD to discuss findings. An addendum with communication details will be sent when the communication is complete. STUDY: CTA OF THE BRAIN REASON FOR EXAM: Female, 53 years old. UNABLE TO SPEAK. RADIATION DOSAGE (If Supplied By Facility): CTDIvol = ( 19.21 ) mGy, DLP = ( 648.48 ) mGycm TECHNIQUE: CT angiography was performed with a multi-detector CT scanner. Data acquisition was obtained from the skull base through the vertex following intravenous administration of Isovue 370 100 IV. MIP images were reconstructed from the axial data set. Post-processing of the angiographic images was performed, with multiplanar reformation and 3D reconstruction. Individualized dose optimization techniques were used for this CT. COMPARISON: None. FINDINGS: Normal bilateral petrous carotid arteries. Normal right cavernous carotid artery with a normal supraclinoid bifurcation. Normal left cavernous carotid artery with a normal supraclinoid bifurcation. Normal right A1 segments of the anterior cerebral artery. Normal left A1 segments of the anterior cerebral artery. Normal intact anterior communicating artery (ACOM). Normal bilateral A2 segments of the anterior cerebral arteries. Normal right M1 and M2 segments of the middle cerebral arteries, with a normal M1 bifurcation. Normal left M1 and M2 segments of the middle cerebral arteries, with a normal M1 bifurcation. Normal right posterior communicating artery (PCOM). 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 Normal bilateral vertebral arteries. Normal basilar artery with a normal basilar bifurcation. The visualized bilateral superior cerebellar (SCA) arteries are normal. Normal bilateral P1, P2 and visualized P3 segments of the posterior cerebral arteries. There is no demonstrated aneurysm of the [place]. There is no demonstrated abnormality of the visualized brain. IMPRESSION: Unremarkable [place] without a demonstrated aneurysm or hemodynamically significant stenosis. Electronically Signed: Tonia Ruiz MD at 12:01 EST Tel , Service support , STUDY: CTA NECK WITH CONTRAST REASON FOR EXAM: Female, 53 years old. UNABLE TO SPEAK. RADIATION DOSAGE (If Supplied By Facility): CTDIvol = ( 19.21 ) mGy, DLP = ( 648.48 ) mGycm TECHNIQUE: CT angiography with multi-detector data acquisition was performed from the aortic arch to the skull base following intravenous administration of Isovue 370 100 IV. MIP images were reconstructed from the axial data set. Post-processing of the angiographic images was performed, with multiplanar reformation and 3D reconstruction. Individualized dose optimization techniques were used for this CT. COMPARISON: None. FINDINGS: AORTIC ARCH: Normal visualized aortic arch. Normal origins of the brachiocephalic, left common carotid, and left subclavian arteries. RIGHT CAROTID ARTERIES: Normal right common carotid artery (CCA). There is minimal atherosclerotic plaque formation with minimal narrowing of the right carotid bulb. Normal origin of the right internal carotid (ICA) artery without a hemodynamically significant stenosis. Normal visualized cervical portion of the right internal carotid artery. Normal origin of the right external carotid artery (ECA). LEFT CAROTID ARTERIES: Normal left common carotid artery (CCA). There is minimal atherosclerotic plaque formation with minimal narrowing of the left carotid bulb. Normal origin of the left internal carotid (ICA) artery without a hemodynamically significant stenosis. Normal visualized cervical portion of the left internal carotid artery. Normal origin of the left external carotid artery (ECA). VERTEBRAL ARTERIES: Normal bilateral vertebral arteries. CT/CTA Neck W/WO Contrast IMPRESSION: No occlusion or significant stenosis. Minimal atherosclerotic disease. Electronically Signed: Tonia Ruiz MD at 12:03 EST Tel , Service support ,
--- NOTE | 2019-01-28 11:49 | MRI_ITS ---
STUDY: MRI BRAIN WITHOUT CONTRAST REASON FOR EXAM: Female, 53 years old. CVA, right arm and leg weakness TECHNIQUE: Standardized multiplanar fat and water weighted pulse sequences were obtained. COMPARISON: CT head 01/28/2019 FINDINGS: Normal size of the ventricles and extra-axial spaces for the patient's age. Normal white matter tracts of the supratentorial brain. Normal bilateral basal ganglia. Normal thalami. There is no extra-axial fluid accumulation. Normal flow voids within the major intracranial circulation suggesting patency by spin echo criteria. Normal sella turcica, pituitary gland, infundibular stalk, optic chiasm and hypothalamus. Normal tectal plate and pineal gland. Normal midbrain, lorena and medulla. Normal cerebellum. Normal basal cisterns. Normal bilateral temporal bones. Normal bilateral internal auditory canals. No demonstrated orbital abnormality, within the constraints of a routine brain study. There is [id number] bilateral ethmoid air cell and marked bilateral sphenoid sinus chronic mucosal thickening. There is a small right maxillary retention cyst. Normal calvarium and skull base. Normal visualized soft tissue structures. Normal visualized upper cervical spine. MRI/Brain without Contrast IMPRESSION: Normal unenhanced MRI of the brain. Mild to moderate bilateral ethmoid air cell and marked bilateral sphenoid chronic sinusitis. Electronically Signed: Pedro Willingham, at 13:52 EST Tel , Service support ,
--- NOTE | 2019-01-28 11:49 | PCM.CONS.GEN ---
Reason for Consult Date of Consultation: 01/28/19 Reason for Consultation: stroke team History of Present Illness: The patient is a 53 year old right handed white female with a history of crohns, this am was feeling feverish with a sore throat and temp at home to 100.3. LKW per when he left for work at 7am, she texted hime to come home at 8am, when he came home he thought she was asleep. 45 min later she appeared to be signalling him with her left arm. theodore was called and she presented to the ED with sore throat and fever. according to ED RN her exam fluctuated, eventually the patient manifested right sided weakness and speech arrest however the ed doc noted she was still able to keep her right arm off the bed. i met the patient in the CT scanner at about [address] and cta concurrently, both negative to my review. in the ct scanner the patient did admit to headache. ED RN reported the patient to be afebrile. Past Medical History Medical History: Medical History (Last Updated 01/28/19 @ 11:55 by Terrell Olmedo MD) Crohns disease K50.90 Allergies cephalexin [From Keflex] Allergy (Verified 01/28/19 10:58) Nausea/Vom/Diarrhea nalbuphine [From Nubain] Allergy (Verified 01/28/19 10:58) Other Home Medications: Ambulatory Orders Medication Instructions Recorded traMADol [Ultram] 50 mg PO DAILY 01/28/19 Smoking Status: Never smoker Tobacco Use: Non-smoker Review of Systems Constitutional: Reports: Fever Neurological: Reports: Change in Speech, Focal weakness Objective: on exam she was mute but able to nod yes/no appropriately to questions and follow all commands including complex commands with both hands. able to tell me the month and her age thru the use of finger counting with left hand. mute perrla, eomi leon intact no facial assymetry sensation intact no drift in either arm or leg, mild weakness however in right arm and leg 4/5 dtrs 2+ nihss 2 (severe dysarthria/mute) - Physical Exam Vital Signs Temp Pulse Resp BP Pulse Ox 37.0 C 95 14 145/88 H 96 01/28/19 10:42 01/28/19 10:42 01/28/19 10:42 01/28/19 10:42 01/28/19 10:42 Oxygen Delivery Method Room Air Weight: 81.647 kg Body Mass Index (BMI) 29.9 Laboratory Tests Past 24 Hrs 01/28/19 01/28/19 01/28/19 11:40 11:40 11:40 WBC Pending RBC Pending Hgb Pending Hct Pending MCV Pending MCH Pending MCHC Pending RDW Pending RDW Differential Pending Plt Count Pending Neut % (Auto) Pending Absolute Neuts (auto) Pending Total Counted Pending PT Pending INR Pending APTT Pending Sodium Pending Potassium Pending Chloride Pending Carbon Dioxide Pending Anion Gap Pending BUN Pending Creatinine Pending Est GFR (MDRD) Af Amer Pending Est GFR (MDRD) Non-Af Pending BUN/Creatinine Ratio Pending Glucose Pending Calcium Pending Troponin I Pending ct reviewed and cta reviewed concurrent with performance, normal Assessment/Plan a/p: cva vs conversion vs complex migraine. ct and cta negative. history of crohns with gi bleed in the past. LKW 5hrs ago however deficits incongruent/nonphysiologic. outside of the window for IV tpa, will obtain a stat mri to evaluate for diffusion abnormality. if negative recommend supportive therapy for URI, migraine. 90 min cc time
[2019-01-28 11:51] LABS: Absolute Neutrophil Count 7.5 X10^3/uL (2.0-7.7); Basophil# 0.03 X10^3/uL; Basophil% 0.3 % (0-1); Eosinophil# 0.02 X10^3/uL; Eosinophils% 0.2 % (0-5); Hematocrit 38.5 % (37-47); Hemoglobin 12.1 g/dl (12.0-15.0); Lymphocyte % 12.6 % (19-41); Mean Corp Hgb Conc 31.4 g/gl (32-36); Mean Corpuscular Hgb 26.9 pg (27.0-32.0); Mean Corpuscular Volume 85.6 fL (81-99); Mean Platelet Vol. 9.9 fl (6.2-12.0); Monocyte# 0.73 X10^3/uL; Monocyte% 7.7 % (0-10); Neutrophil # 7.54 X10^3/uL (2.7-7.7); Platelet Count 214 K/mm3 (150-450); RBC Distribution Width CV 14.5 % (11.6-14.6); RBC Distribution Width SD 45.5 fl (35.1-43.9); White Blood Count 9.5 K/mm3 (4.4-11.0)
[2019-01-28 11:53] LABS: POSITIVE COUNT NO; POSITIVE DIFFERENTIAL NO; POSITIVE MORPHOLOGY NO
[2019-01-28 11:56] LABS: International Normalized Ratio 1.1; Partial Thromboplast Time 29.4 Seconds (24.1-36.2); Prothrombin Time (Protime)PT. 13.8 SECONDS (11.7-14.9)
[2019-01-28 12:04] LABS: Anion Gap 8 (5-15); BUN 11 mg/dL (7-18); BUN/Creat Ratio 15.6 RATIO (10-20); Calcium,Total 8.1 mg/dL (8.5-10.1); Chloride 105 mmol/L (98-107); Creatinine, Serum 0.71 mg/dL (0.55-1.02); EST Glomerular Filtration Rate 92 mL/min (>60); Est Glom Filt Rate - Afr Amer 112 mL/min (>60); Estimated Creatinine Clearance 84.35 ml/min; Glucose 97 mg/dL (74-106); Potassium 3.9 mmol/L (3.5-5.1); Sodium Level 141 mmol/L (136-145)
--- NOTE | 2019-01-28 12:25 | CHAPLAIN ---
Type of Pastoral Visit ___ Initial Visit ___ Follow-up Visit ___ On-call Visit ___ General Patient Visit ___ Spiritual Assessment ___ Family Conference ___ Bereavement _x__ Rapid Response ___ Code Blue ___ Other (describe below) Pastoral Care Referral From ___ Patient _x__ Family ___ Nurse ___ Physician ___ Mechanical Design Engineer Facilities ___ Military Technology Specialist _x__ Other (describe below) Sacrament/Intervention _x__ Active listening ___ Anointing ___ Sikhism ___ Bereavement ___ Communion ___ Martha exploration ___ ___ Life review _x__ Prayer ___ Reconciliation ___ Sacrament of Sick _x__ Supportive presence ___ Wedding ___ Other (describe below) Pastoral Comments offered support to spouse of patient when pt was taken to CT; spouse is accepting of spiritual care and prayer; pt and spouse have history in a local worship but are not currently active; spouse explains the morning and what he knows; spouse is offered support as desired from this pocket marker; came to talk with spouse and pt at time when pt returned from CT; departed from room at this time; informed pt and spouse that stroke did not occur
[2019-01-28] MEDS: 0.9% Normal Saline 1,000 ML 999 ML IV (12:49)
[2019-01-28] MEDS: DiphenhydrAMINE 50 MG/ML Syringe IV (13:00)
[2019-01-28] MEDS: Metoclopramide 10 MG/2 ML Vial IV (13:00)
[2019-01-28] MEDS: Ketorolac 30 MG/ML Syringe IV (13:01)
--- NOTE | 2019-01-28 13:52 | ED.VISSUMM ---
- ER Visit Summary Date of Service: 01/28/19 Chief Complaint: Headache, sore throat, fever, weakness, unable to speak History of Present Illness: The patient is a [address] Nielsen. She reports that she has a headache that began yesterday. Is 9-10 severity. It is a throbbing pain in both temples. She is been nauseated. reports that she texted him at 8:00 this morning and stated that she went into the bathroom and after having a bowel movement she had a near syncopal episode. Since that time she has been unable to speak and unable to move her right arm. Patient does complain of a sore throat that is 9 out of 10 in severity. She denies any cough, chest pain, shortness of breath, abdominal pain, vomiting or diarrhea, dysuria frequency. Physical Examination: Vitals: Stable. Afebrile. General: Well-nourished and well-developed. Head: Normocephalic atraumatic. Neck: Supple, no lymphadenopathy. No JVD. Nontender. Cardiovascular: Regular rate and rhythm. No murmurs. Respiratory: No respiratory distress. Clear to auscultation bilaterally. Abdominal: Soft, nontender, nondistended, normal bowel sounds. No guarding, rebound, or peritoneal signs. Back: Nontender. Extremities: Nontender, no edema. Skin: Normal color, no rash. Neurologic: Patient is alert, but is refusing to talk. She will not even make an attempt at talking. Cranial nerves II through XII are intact. Normal strength and sensation. Patient reports that she cannot lift her right arm or right leg. However when I lift these and asked that her to hold them she holds it with no drift for greater than 5 seconds. Psych: Normal affect. Test Results: EKG is sinus at 96 with artifact no acute disease. Troponin is negative. Strep is negative. INR is 1.1. PTT is 29.4. Influenza is negative. Chem-7 is more for calcium 8.1. CBC is marked for 7 neutrophils [address] brain shows no acute disease. CTA head neck shows minimal atherosclerotic disease. MRI shows no acute disease. Emergency Department Course and Treatment: Patient was seen by Dr. Olmedo in the emergency department. At this time this is not felt to be physiologic in nature. She was given Toradol, Benadryl, and Reglan IV. She is resting comfortably. Treatment Plan: Patient has asked to go home. She will be discharged at this time. At I did discuss them that I do not have an explanation for why she cannot speak. She is instructed follow-up her primary care physician in 1-2 days for further evaluation. She is given name of Dr. Olmedo to follow-up with his well. Return to the emergency department for any worsening symptoms. Disposition: To home in improved and stable condition. Impression: 1. Cephalgia. 2. Pharyngitis. This note was generated with [employer] dictation software. It may contain incorrect words, spelling, and punctuation that were not noted in review of the chart prior to signing ED Disposition - Plan for ED Patient: Disposition: Home or Assisted Living Instructions: ED Cephalgia Unspecified Referrals: Kevin Jerome MD [STAFF PHYSICIAN] - 3-5 Days if not improving Terrell Olmedo MD [STAFF PHYSICIAN] - As soon as possible
== END 2019-01-28 14:24 | disposition home or self-care (01) ==
LOC: ED 11:24
PROVIDERS: Emergency Provider Emergency Medicine
DX: R51 Headache (principal); R47.1 Dysarthria and anarthria; R53.1 Weakness; J02.9 Acute pharyngitis, unspecified; K50.90 Crohn's disease, unspecified, without complications; Z90.49 Acquired absence of other specified parts of digestive tract
CPT/HCPCS: 70450; 70496; 70498; 70551; 80048; 84484; 85025; 85610; 85730; 87804; 87880; 93005; 96361; 96374; 96375; 99285; J7030; Q9967; A4216

== ENCOUNTER 2019-01-30 09:00 | Outpatient (RCR) | payer BC, SELFPAY ==
--- NOTE | 2019-01-30 09:05 | BH.SGPN.GN ---
Behaviors/Verbalizations/Mental Status: [Eye contact is good -tearful. Motor activity is appropriate. Appearance is casual and neat. Speech is Appropriate. Mood is depressed, anxious. Affect is constricted. Thoughts are linear and logical. No evidence of psychosis. Reviewed daily check in sheet with no reports of suicidal ideations or intent. ] Client Response/Progress/Benefit: [Client an actively listening throughout group. She indicated feeling upset today but is ?here? which is a positive for her. She noted having had a difficult weekend and declined to go into further detail regarding her check-in. Client noted a desire to ?pass? for the day. Appeared to benefit from supportive group environment and structure. Asked fellow participants questions and gave feedback. Client continues to struggle with anxiety associated with ruminating thoughts. Will continue in IOP to increase coping skills, improve anxiety management, and prevent decompensation. ] Narrative Note: []
--- NOTE | 2019-01-30 10:20 | BH.SGPN.GN ---
Behaviors/Verbalizations/Mental Status: []Client alert and oriented, neatly dressed and groomed. Eye contact good. Motor activity appropriate. Speech soft. Affect flat, mood depressed. Thoughts linear, logical, no signs of hallucinations or delusions. Client Response/Progress/Benefit: []Client responded well to session, participating in discussion occasionally and tearful. Client engaged in discussion of stress and able to recognize that stress can be positive as it can help a person perform. However, client shared if a person does not manage stress it can result in ongoing issues. Client stated stress can impact a person physically, mentally, and emotionally. Client shared that when her anxiety and stress are high, client's Crohn's Disease is worse. Client participated in identifying current stressors in her life. Client's current stressors include: health, illness, lack of movement, home improvements, unresolved relationships, missing her granddaughter, and mental health. Client stated she is current feeling distressed and overwhelmed as she is tearful and feels low motivation. 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 Client appeared to benefit from gaining awareness to her current stressors and identifying her needs.
--- NOTE | 2019-01-30 11:15 | BH.SGPN.GN ---
Behaviors/Verbalizations/Mental Status: [] Eye contact is good. Motor activity is appropriate. Appearance is casual. Speech is Appropriate. Mood is depressed. Affect is flat. Thoughts are linear and logical. No evidence of psychosis. Client Response/Progress/Benefit: [] Pt was an active participant in group activity and discussion. Pt worked with the group to brainstorm barriers to coping with stress which included; using comfortable but ineffective skills, feeling frozen or stuck in the emotion, poor communication of needs/concerns, negative thinking, and focusing on worst case scenario. Along with the group identified strategies which are helping in coping with stress which included; teamwork, being OK with failing, clear and specific communication of needs, wants, and concerns, patience, challenging negative assumptions, being mindful, and developing a plan. Attentive during psycho-education on the four A's of stress (Adapt, alter, avoid, and accept) which are stress management strategies. Benefited from identifying barriers to managing stress and stress management strategies. Will continue in IOP to stablize mood, improve daily functioning to return to work, and process emotions related to recent medical crisis. Narrative Note: []
--- NOTE | 2019-01-30 13:42 | PCM.PN.BLA ---
Progress Note Chief Complaint: The patient is a 53-year old female who is an active participant in the intensive outpatient mental health treatment program at [facility]. She has a history of depression. History of Present Illness/Interim History: The patient is currently feeling sick because of a cold. Note, she also recently had an episode of right-sided weakness and speech problems. Was seen in the emergency room and had a neurological consultation. It was determined that she had suffered from a complex migraine headache. Her mood has been up and down. She said that her mood is good for a few days and then she gets down for a few days. She suffers from some lack of motivation. She continues to be treated with naturopathic medicines prescribed by a friend. She also has been seeing an product marketer and that treatment helps her manage her emotions. She thinks the intensive outpatient groups have been very helpful. Current Psychiatric Medications: None Review of Symptoms: Psychiatric: Intermittent depression as per HPI. She is not suicidal. Is no psychosis. Constitutional: She is overweight. She has been suffering from a cold, she had a complex migraine attack as per HPI. Mental Status Examination: She presents as a pleasant cooperative woman of overweight build who is neatly dressed and groomed. Her thoughts are logical and coherent. She reports intermittent symptoms of depression as per HPI. She is not suicidal. There is no psychosis. She is cognitively intact. Diagnoses: [] [place] I: Major depression, recurrent, in partial remission [place] II: None [place] III: Overweight, Crohn's disease, complex migraines Plan: No psychiatric medicines are prescribed. The patient will continue treatment in the intensive outpatient program. I will see her again as needed.
--- NOTE | 2019-01-30 13:48 | PN_ITS ---
Progress Note Chief Complaint: The patient is a 53-year old female who is an active participant in the intensive outpatient mental health treatment program at [facility]. She has a history of depression. History of Present Illness/Interim History: The patient is currently feeling sick because of a cold. Note, she also recently had an episode of right-sided weakness and speech problems. Was seen in the emergency room and had a neurological consultation. It was determined that she had suffered from a complex migraine headache. Her mood has been up and down. She said that her mood is good for a few days and then she gets down for a few days. She suffers from some lack of motivation. She continues to be treated with naturopathic medicines prescribed by a friend. She also has been seeing an rapid outsole stitcher and that treatment helps her manage her emotions. She thinks the intensive outpatient groups have been very helpful. Current Psychiatric Medications: None Review of Symptoms: Psychiatric: Intermittent depression as per HPI. She is not suicidal. Is no psychosis. Constitutional: She is overweight. She has been suffering from a cold, she had a complex migraine attack as per HPI. Mental Status Examination: She presents as a pleasant cooperative woman of overweight build who is neatly dressed and groomed. Her thoughts are logical and coherent. She reports intermittent symptoms of depression as per HPI. She is not suicidal. There is no psychosis. She is cognitively intact. Diagnoses: [] [place] I: Major depression, recurrent, in partial remission [place] II: None [place] III: Overweight, Crohn's disease, complex migraines Plan: No psychiatric medicines are prescribed. The patient will continue t reatment in the intensive outpatient program. I will see her again as needed.
--- NOTE | 2019-02-01 18:17 | BH.MDN_ITS ---
Multi-Disciplinary Note - Note 45-min Individual Time Started:: 12:31 Date: 01/30/19 Purpose of session/treatment goals addressed:: Purpose of session was to assess pt's current symptoms and stressors. Other topics included processing recent medical situation, processed short trip with pt's mom, discharge from [facility], and identified tentative plan for the weekend. Eye Contact:: Good Motor Activity:: Appropriate Appearance:: Casual Speech:: Appropriate Mood:: Anxious, Dysthymic - tearful Affect:: Congruent Thoughts:: Linear, Logical, No evidence of hallucinations/delusions noted Staff Interventions:: Therapist used open ended questions to elicit pt's current symptoms and stressors. Therapist processed recent medical situation, assisting pt with expressing emotions and thoughts. Therapist processed pt's short trip with her mom, elicited positives and stressors with the trip. Therapist collaborated with pt to identify a tentative plan for the weekend. Provided support by using active listening and validating emotions. 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 Client shared the doctors initially believed she was having a stroke, but after all the testing came back a stroke was ruled out. Client shared eventually the doctors were able to figure out what was happening to client. Client stated it was really scary when she was unable speak, only could communicate by writing when she regained functioning of her hands. Client reported the doctors told her a himiplegic migraine is very rare. Client shared she has scheduled with a nuerologist to make sure everythign is okay. Client stated after this experience she has thought about the importance of expressing her feelings and thoughts to those people that are important to her. Client reported her trip to visit her mom went overall ok. Client stated feeling disappointed because she had told her mom she wanted to talk to her mom about some things and asked her mom to tell client when a good time would be to talk about those things. Client shared her mom never asked client to talk. Client stated she has decided she will write down what she wants to say to mom to at least express how she feels. Client shared this weekend she will focus on resting and not pushing herself. When discussing tentative discharge from [facility] client reported she would like to extend her FMLA because believes the recent medical complication was a setback and doesn't feel ready she is ready to return to work. Risks/Concerns:: Client denies suicidal ideation, plan or intention to date. Progress Toward Goals/Plan:: Client recent medical scare and trip to visit client's mom seem to be a setback to progress. Client struggling with negative thinking, low energy, and struggles with directly communicating to her mom about how she feels which seems to have significant impact on her mood. Client to continue IOP level of care to increase use of healthy coping and prevent decompensation. Time Stopped:: 13:15
--- NOTE | 2019-02-02 09:10 | BH.SGPN.GN ---
Behaviors/Verbalizations/Mental Status: [] Eye contact is good. Motor activity is appropriate. Appearance is casual. Speech is Appropriate. Mood is depressed. Affect is flat. Thoughts are linear and logical. No evidence of psychosis. Reviewed daily check in sheet and no reports of suicidal ideations or intent. Client Response/Progress/Benefit: [] Pt was an active participant in group discussion. Emotion for today is tired. Reports that she is glad that the stress of last week is over however struggles with ruminations related to her medical episode. Fearful that it will happen again. Still no concrete answers however she remains fearful and anxious on a daily basis. She is utilizing some skills to decrease rumination mainly distraction and reframing. Reports that she slept a majority of the weekend. Depressed. Sleeping was way to escape ruminating thoughts. Regression noted since medical event last week. Group provided support and encouragement which she benefited from. Will continue in IOP to stabilize mood after recent medical crisis and improve functioning to return to work. No progress noted per pt report. Reports regression in MH symptoms due to medical crisis. Narrative Note: []
--- NOTE | 2019-02-02 10:15 | BH.SGPN.GN ---
Behaviors/Verbalizations/Mental Status: []Client alert and oriented, neatly dressed and groomed. Eye contact good. Motor activity appropriate. Speech within normal limits. Affect constricted, mood euthymic. Thoughts linear, logical, no signs of hallucinations or delusions. Client Response/Progress/Benefit: []Client responded well to session, taking notes and engaged in discussion. Client reported viewing things as impossible can negatively impact one?s mental health progress and keep a person stuck. Client appeared to connect with fixed thinking and recognized fixed thinking patterns she uses. Client stated she tends to catastrophize ?I just go off the deep end and assume the worst.? Client agreed with peers that if one can challenged fixed thinking it can positively impact mental health. Client identified some fixed thoughts that have kept client feeling stuck. Client?s thoughts included ?I won?t get healthy and I am my past.? Client hung up her fixed thoughts in the group room with other?s fixed thoughts. Client engaged in the group activity and the group did not complete the activity during second group. However, client did not give up and continued to present new ideas. Client appeared to benefit from identifying fixed thoughts that have kept client stuck in negative maintenance cycles. Progress noted as client was able to bounce back from a recent medical issue and use healthy coping skills. Client to continue IOP to promote gains and increase mood stability.
--- NOTE | 2019-02-02 11:16 | BH.SGPN.GN ---
Behaviors/Verbalizations/Mental Status: [Client maintained good eye contact, casually and neatly dressed and appropriate grooming, motor activity appropriate, speech normal rate and tone, mood depressed, anxious, affect congruent, thoughts linear, logical, no evidence of delusions or hallucinations.] Client Response/Progress/Benefit: [Client attentive and engaged in both discussion and growth mindset reflection activity, though mostly taking on an observatory role. Client providing input when prompted and taking notes throughout. Client worked with the group on identifying self-reflection questions and strategies to reframe fixed mindset thoughts. Provided idea of using a thought log. Participated in reflection on how fixed mindset thoughts the group experienced in the activity impacted ability to complete the task at hand and strategies use to overcome these barriers. She worked with group to identify important components of developing a growth mindset and indicated that this can help challenge unrealistic expectations of self as well as increase flexibility. Client used cognitive restructuring to reframe previously identified fixed thoughts. Client replaced fixed thought identified in previous group and processed new growth mindset thought. Client benefitted from discussing strategies to promote a growth mindset in daily life. Progress noted in client ability to successfully replace fixed thoughts associated with health despite a recent setback. Continued IOP tx to prevent decompensation, increaseuse of distress tolerance and emotion regulation skills, and continue to work on reducing sx of anxiety.] Narrative Note: []
--- NOTE | 2019-02-03 11:16 | BH.SGPN.GN ---
Behaviors/Verbalizations/Mental Status: [Client alert and oriented, casual and neat dress, hygiene good. Eye contact good. Motor activity appropriate. Speech within normal limits. Affect congruent, mood euthymic and anxious. Thoughts linear, logical, no signs of hallucinations or delusions. ] Client Response/Progress/Benefit: [Client engaged throughout session AEB pt participating in activity, contributing thoughts and ideas, and listening attentively to peers. Client engaged and worked with peers during activity in which group members had to identify positive strategies to overcome the various barriers/obstacles that hindered progress. Client identified personal barriers as: hopelessness, fear of the unknown, health related anxiety, and lack of motivation. Client shared a strategy for overcoming barrier of cognitive distortions as keeping a thought log to challenge distorted thoughts. Reports this is personally effective for her. Client shared the barrier she is going to work on is hopelessness and indicated utilizing affirmational statements to do so. Client seemed to benefit from increased repertoire of strategies to help overcome barriers to progress. Recommended continued IOP to maintain gains, prevent decompensation, and continue to improve sx management.] Narrative Note: []
--- NOTE | 2019-02-03 14:50 | BH.TPR ---
Treatment Plan Review Date of Admission:: 01/06/19 Date of Treatment Plan Review:: 02/03/19
--- NOTE | 2019-02-03 16:26 | BH.MDN ---
Multi-Disciplinary Note - Note 60-min Individual Time Started:: 09:09 Date: 02/03/19 Eye Contact:: Good Motor Activity:: Appropriate Appearance:: Casual Speech:: Appropriate Mood:: Anxious, Depressed, Other - teaful Affect:: Congruent Thoughts:: Linear, Logical, No evidence of hallucinations/delusions noted Time Stopped:: 10:05
--- NOTE | 2019-02-05 09:10 | BH.SGPN.GN ---
Behaviors/Verbalizations/Mental Status: [] Eye contact is good. Motor activity is appropriate. Appearance is neat. Speech is Appropriate. Mood is depressed. Affect is flat. Thoughts are linear and logical. No evidence of psychosis. Reviewed daily check in sheet and no reports of suicidal ideations or intent. Client Response/Progress/Benefit: [] Pt participated in group discussion. Emotion for today is hopeful. Reports that she had her first good day since her medical crisis on 01/28/19. States that he headaches and other somatic issues are lessening and she is feeling more optimistic about her functioning and her future. Reports that she stayed on task yesterday and did not isolate or sleep the entire day. She remains anxious this AM due to upcoming family event however feels she can manage. Progress noted per pt report. Benefited from group support and encouragement. Will continue in IOP to prevent decompensation, stabilize mood, and improve functioning to return to work. Narrative Note: []
--- NOTE | 2019-02-05 10:25 | BH.SGPN.GN ---
Behaviors/Verbalizations/Mental Status: [Pt eye contact good, casually dressed, motor activity appropriate, speech normal rate and tone, mood anxious, congruent affect, thoughts linear and intact, no evidence of delusions or hallucinations.] Client Response/Progress/Benefit: [Pt receptive of session and engaged throughout. Did well to participate in the activity and provide input during session, though appearing quieter than usual baseline. Pt appeared to connect with various definitions of resilience provided by the group as well as ideas for how resilience can have positive impacts mental health and wellness. She defined resilience as the ability to ?fall 10x and get up 11?. Pt engaged in small group discussion about the various strategies that can help strengthen one's resilience. Indicated that having a hopeful outlook is an important component of resilience as it ?improves positivity. Client shared personally benefitting from identifying her own daily positives and keeping a gratitude log. Pt seemed to benefit from increased awareness of various components that can contribute to increased resilience. Progress noted in pt ability to identify strategies she is using currently to build resilience. Continued IOP recommended to prevent decompensation, increase healthy skill application to continue to improve anxiety management. ] Narrative Note: []
--- NOTE | 2019-02-09 09:05 | BH.SGPN.GN ---
Behaviors/Verbalizations/Mental Status: [] Eye contact is good. Motor activity is appropriate. Appearance is casual. Speech is Appropriate. Mood is depressed. Affect is flat. Thoughts are linear and logical. No evidence of psychosis. Reviewed daily check in sheet and no reports of suicidal ideations or intent. Client Response/Progress/Benefit: [] Pt participated in group discussion. Emotions for today is Calm. Reports that she feels that she is finally stablizing after medical crisis stating I'm getting back to how I was before. Did not isolate or sleep the entire weekend which she had done last weekend. More active and more social. Feels more confident in managing her ruminations and david. She reports it was a struggle to stay away from her bed and sleeping however feels that she utilized coping skills and thought reframing to help motivate herself. Progress noted per pt report. Will continue in IOP to prevent decompensation, improve functioning to return to work, and stabilize mood after recent crisis. Narrative Note: []
--- NOTE | 2019-02-09 11:20 | BH.SGPN.GN ---
Behaviors/Verbalizations/Mental Status: []Client alert and oriented, neatly dressed and groomed. Eye contact good. Motor activity appropriate. Speech within normal limits. Affect congruent, mood euthymic. Thoughts linear, logical, no signs of hallucinations or delusions. Client Response/Progress/Benefit: []Client responded well to session, engaged and positively contributing. Client participated in the activity and helped the group process challenges associated with making change. During the activity client pointed out that without communication and a plan the group would continue to struggle. Client shared that change is unpredictable, but it can be helpful to set small goals. Client reported teamwork, proactive communication, and challenging self-blame helped the group adapt to change. Client identified a change she would like to make to improve her mental health. Client?s goal was to increase motivation. Client shared she can do this by setting more small SMART goals daily. Client reported she has been doing better with ?seeing the [place]? which has helped client challenge all or nothing thinking with goal setting. Client appeared to benefit from overcoming challenges associated with making change and from identifying a change that would improve her mental health. Progress noted as client reports improved mood, since recent medical setback, and ability to challenge negative thinking. However, client can benefit from continuing IOP to promote gains and further increase mood stability.
--- NOTE | 2019-02-12 09:04 | BH.SGPN.GN ---
Behaviors/Verbalizations/Mental Status: [Eye contact is good - at times intense. Motor activity is appropriate. Appearance is casual and neat. Speech is appropriate rate and tone. Mood is depressed, anxious, disappointed. Affect is congruent. Thoughts are consistent with rumination, preoccupied. No evidence of psychosis. Reviewed daily check in sheet with no reports of suicidal ideations or intent.] Client Response/Progress/Benefit: [Pt attentive as fellow participants shared; however, appeared distracted by own thoughts at various points in session. Indicated that her emotion for today is disappointed as she she wishes she were managing her mental health symptoms more successfully. Pt went on to explain that she had experienced a ?break down? over the weekend when attempting to return office supplies to her place of work. Pt did well to identify that she had successfully identified her symptoms of anxiety as they were occurring and apply skills to prevent further escalating. Pt noted receptive of and appeared to benefit from identifying the positive use of coping skills in the situation; however, continues to report ruminating about her ability to manage anxiety. She was able to identify an additional win of not continuing to allow herself to ruminate and isolate by instead going for a hike. Client displaying some progress in her ability to engage in healthy coping and apply thought challenging techniques though is recommended continued IOP tx to improve consistency of use and prevent decompensation.] Narrative Note: []
--- NOTE | 2019-02-12 11:25 | BH.SGPN.GN ---
Behaviors/Verbalizations/Mental Status: []Client alert and oriented, neatly dressed and groomed. Eye contact good. Motor activity appropriate. Speech within normal limits. Affect flat, mood depressed. Thoughts linear, logical, no signs of hallucinations or delusions. Client Response/Progress/Benefit: []Client responded well to session, quiet, but participating when prompted. Client appeared to connect with maintenance cycles and recognized how negative thinking can keep a person stuck. Client identified a negative thought that has kept her stuck. Client?s thought was ?my opinions and feelings don?t matter.? Client shared she is currently thinking this way today and it has led to increased depression and withdrawal. Client recognized that this thought is unrealistic as client could identify cognitive distortions and evidence that disproves her thought. Client struggled at first to reframe the thought because of her current emotions. After prompting, client able to reframe the thought to ?I can contribute to the group with my experiences.? Client shared this thought would improve her mental health because it would lead to being more open to people and more confident. Client appeared to benefit from practicing challenging negative thinking. Client has made progress in implementing healthy coping skills to reduce depression, however, today client feels increased symptoms due to a work stressor. Client to continue IOP to prevent decompensation.
--- NOTE | 2019-02-12 15:34 | BH.MDN ---
Multi-Disciplinary Note - Note 60-min Individual Time Started:: 12:28 Date: 02/12/19 Purpose of session/treatment goals addressed:: Purpose of session was to assess pt's current symptoms and stressors. Other topics included: processing recent stressor, challenging negative thought patterns, discussing discharge, and childhood trauma psychoeducation. Eye Contact:: Good Motor Activity:: Appropriate Appearance:: Neat Speech:: Appropriate Mood:: Anxious, Other - sad, tearful Affect:: Congruent Thoughts:: Linear, Logical, No evidence of hallucinations/delusions noted Staff Interventions:: Therapist used open ended questions to elicit pt's current symptoms and stressors. Therapist processed recent stressor, challenging pt's negative and distorted thought patterns. Therapist discussed tentative discharge date and plan for aftercare. Therapist provided psychoeducation about impact of childhood trauma on brain development and common trauma responses. Therapist discussed role of resiliency and neural plasticity in helping individuals bounce back from childhood trauma. Client Response:: Client reported she had been doing really well until Saturday when she went to return her work computer cord to her previous place of employment. Client shared as she was getting closer to her work on Saturday she became emotional and had a difficult time managing her emotions. Client stated she started to think of herself as a failure for not being able to maintain her job placement. Client shared when she met with her former boss she stated it was difficult to manage her emotions, but looking back she is glad she got to see her boss because he thanked her for everything she did for the company and told her he would right a letter of reference. Client stated she was upset with herself for the rest of the day because she thought she was getting better, but couldn't understand why she was crying so much. With assistance from therapist client able to connect returning to her previous place of employment was a trigger because it brought up memories and negative thoughts that she is a failure. Client stated she now has a better understanding of being more emotional past two days and could identify areas in which she is continuing to progress in. Client shared she is starting to hike every Saturday with one of her friends in the evenings to get her outdoor time. Client reported she is ready to discharge from program next week, expressed anxiety about being done with IOP but recognizes she has learned a lot and has made progress compared to her first day. Client shared she has reached out to her outpatient therapist to schedule session for when discharge from [facility]. Client inquired about more information about how childhood trauma can impact an individual. Client connected with the common trauma responses and expressed worry she will not be able to be fixed. With assistance from therapist to challenge negative thought patterns, client could identify ways in which she has progressed and move foward in life. Client reported she can not only better understand her self after the education about trauma, but also has bettter understanding of her mom and sister. Client stated through continued counseling and caring for her physical health she has hope she will continue to improve and get better. Risks/Concerns:: Client denies suicidal ideation, plan or intention to date. Progress Toward Goals/Plan:: Client progressing with returning to an active lifestyle, starting to spend more time with friends, overall decrease in frequency and duration of crying spells, and decrease in all or nothing thinking. Client continues to struggle with seeing positives when faced with a stressor. Client to continue [facility] level of care to maintain gains, decrease negative thinking and prevent decompensation. Time Stopped:: 13:35
--- NOTE | 2019-02-12 16:02 | BH.MDN_ITS ---
Multi-Disciplinary Note - Note 60-min Individual Time Started:: 12:28 Date: 02/12/19 Purpose of session/treatment goals addressed:: Purpose of session was to assess pt's current symptoms and stressors. Other topics included: processing recent stressor, challenging negative thought patterns, discussing discharge, and childhood trauma psychoeducation. Eye Contact:: Good Motor Activity:: Appropriate Appearance:: Neat Speech:: Appropriate Mood:: Anxious, Other - sad, tearful Affect:: Congruent Thoughts:: Linear, Logical, No evidence of hallucinations/delusions noted Staff Interventions:: Therapist used open ended questions to elicit pt's current symptoms and stressors. Therapist processed recent stressor, challenging pt's negative and distorted thought patterns. Therapist discussed tentative discharge date and plan for aftercare. Therapist provided psychoeducation about impact of childhood trauma on brain development and common trauma responses. Therapist discussed role of resiliency and neural plasticity in helping individuals bounce back from childhood trauma. Client Response:: Client reported she had been doing really well until Saturday when she went to return her work computer cord to her previous place of [employer]. Client shared as she was getting closer to her work on Saturday she became emotional and had a difficult time managing her emotions. Client stated she started to think of herself as a failure for not being able to maintain her job placement. Client shared when she met with her former boss she stated it was difficult to manage her emotions, but looking back she is glad she got to see her boss because he thanked her for everything she did for the company and told her he would right a letter of reference. Client stated she was upset with herself for the rest of the day because she thought she was getting better, but couldn't understand why she was crying so much. With assistance from therapist client able to connect returning to her previous place of employment was a trigger because it brought up memories and negative thoughts that she is a failure. Client stated she now has a better understanding of being more emotional past two days and could identify areas in which she is continuing to progress in. Client shared she is starting to hike every Saturday with one of her friends in the evenings to get her outdoor time. Client reported she is ready to discharge from program next week, expressed anxiety about being done with IOP but recognizes she has learned a lot and has made progress compared to her first day. Client shared she has reached out to her outpatient therapist to schedule session for when discharge from [facility]. Client inquired about more information about how childhood trauma can impact an individual. Client connected with the common trauma responses and expressed worry she will not be able to be fixed. With assistance from therapist to challenge negative thought patterns, client could identify ways in which she has progressed and move foward in life. Client reported she can not only better understand her self after the education about trauma, but also has bettter understanding of her mom and sister. Client stated through continued counseling and caring for her physical health she has hope she will continue to improve and get better. Risks/Concerns:: Client denies suicidal ideation, plan or intention to date. Progress Toward Goals/Plan:: Client progressing with returning to an active lifestyle, starting to spend more time with friends, overall decrease in frequency and duration of crying spells, and decrease in all or nothing thinking. Client continues to struggle with seeing positives when faced with a stressor. Client to continue [facility] level of care to maintain gains, decrease negative thinking and prevent decompensation. Time Stopped:: 13:35
--- NOTE | 2019-02-13 09:03 | BH.SGPN.GN ---
Behaviors/Verbalizations/Mental Status: []Client alert and oriented, casual dress, hygiene tended to. Eye contact good. Motor activity appropriate. Speech within normal limits. Affect congruent, mood euthymic and positive. Thoughts linear, logical, no signs of hallucinations or delusions. Reviewed client?s symptom tracker, no signs of suicidal ideation, plan, or intent as of today. Client Response/Progress/Benefit: []Pt was engaged in group discussion, providing input at times, attentive AEB good eye contact and nodding throughout. Emotion for today is upbeat. Stressor identified as next week being her last week in IOP and worried about being able to maintain her progress. Mental health win identified as having a good conversation with her after her individual therapy session, which pt stated went really well. Additional win is feeling more positive today, which pt identified expressing her thoughts and emotions with her yesterday as a force that has helped her mood. Pt benefited from supportive and structured group environment. Recommended to continue IOP tx to prevent decompensation, and continue to improve positive coping and anxiety management. Narrative Note: []
--- NOTE | 2019-02-13 10:13 | BH.SGPN.GN ---
Behaviors/Verbalizations/Mental Status: []Client alert and oriented, neatly dressed and groomed. Eye contact good. Motor activity appropriate. Speech within normal limits. Affect constricted, mood euthymic. Thoughts linear, logical, no signs of hallucinations or delusions. Client Response/Progress/Benefit: []Client responded well to session, positive contributions. ?Client commented on the quote, ?boundaries are about loving yourself and sometimes others don?t like it.? Client connected with the discussion of the different types of boundaries such as physical and time boundaries. Client shared she has issues with material boundaries at work as she feels like her coworkers do not respect her things. Client agreed with peers that boundaries can impact one?s mental health both positively and negatively. Client stated setting boundaries can cause anxiety, but boundaries also prevent anxiety. Client shared without boundaries ?you get worn out? and with too rigid boundaries ?you stay stuck.? Client participated in the self-awareness activity. Client often moved towards the healthy and rigid boundary types. Client shared has been more rigid in the past ?because I?ve been hurt before? but now client [place] Client appeared to benefit from gaining awareness of how her boundaries impact mental health progress. Client progressing as shown by her report of utilizing healthy coping skills, but she can continue to maintain mood stability.
--- NOTE | 2019-02-13 11:14 | BH.SGPN.GN ---
Behaviors/Verbalizations/Mental Status: [Pt eye contact appearing intense, casually and neatly dressed, appropriate grooming, motor activity appropriate, speech normal rate and tone, mood euthymic and anxious, congruent affect, thoughts linear and intact, no evidence of delusions or hallucinations.] Client Response/Progress/Benefit: [Pt responded well to session, engaged throughout discussion on setting healthy boundaries. Provided input regarding different styles of boundary setting and discussed personal experiences in struggling to maintain healthy boundaries. Client indicated she often has ?rigid boundaries, noting that her difficulties in opening up have caused difficulties in connecting with co-workers in the past. Pt became tearful in discussing personal impact of unhealthy boundaries on her relationship with her children. Pt participated in brainstorming strategies for improving personal boundaries and inquired as to how she could be firm with her boundaries when they are tested. Receptive of advice provided by the group. Pt benefited from gaining awareness of barriers impacting boundaries as well as strategies for improving healthy boundary setting and maintenance. Progress noted in ability to identify areas she could improve upon in setting her own boundaries and where progress has been made. Continued tx to prevent decompensation, promote healthy coping skills, as well as continue to make progress towards tx goals] Narrative Note: []
--- NOTE | 2019-02-13 11:33 | PCM.PN.BLA ---
Progress Note Chief Complaint: The patient is a 53-year old female who is an active participant in the intensive outpatient mental health treatment program at [facility] [place]. She has a history of depression. History of Present Illness/Interim History: The patient is nearing the end of her treatment in our program. He describes her treatment as an amazing experience. It was very helpful. I learned a lot. Her mood has varied some. She had some bad days but is now on the upswing. He is helped by the support of her and children. She continues to be helped by her naturopathic treatments. Current Psychiatric Medications: None Review of Symptoms: Psychiatry: Intermittent depression as per HPI. She is not suicidal. There is no psychosis. He is cognitively intact. Constitutional: She is overweight. Her energy level is good. She recently suffered from a complex migraine attack. Mental Status Examination: The patient presents as a pleasant, cooperative woman of overweight build who is neatly dressed and groomed. Her thoughts are logical and coherent. She reports intermittent symptoms of depression. He is not suicidal. There is no psychosis. She is cognitively intact. Diagnoses: [] [place] I: Major depression, recurrent, in partial remission [place] II: None [place] III: Overweight, Crohn's disease, complex migraines Plan: No psychiatric medicines are prescribed as per patient request. She will soon be completing treatment in the intensive outpatient program. I will see her again as needed.
--- NOTE | 2019-02-13 11:38 | PN_ITS ---
Progress Note Chief Complaint: The patient is a 53-year old female who is an active participant in the intensive outpatient mental health treatment program at [facility]. She has a history of depression. History of Present Illness/Interim History: The patient is nearing the end of her treatment in our program. He describes her treatment as an amazing experience. It was very helpful. I learned a lot. Her mood has varied some. She had some bad days but is now on the upswing. He is helped by the support of her and children. She continues to be helped by her naturopathic treatments. Current Psychiatric Medications: None Review of Symptoms: Psychiatry: Intermittent depression as per HPI. She is not suicidal. There is no psychosis. He is cognitively intact. Constitutional: She is overweight. Her energy level is good. She recently suffered from a complex migraine attack. Mental Status Examination: The patient presents as a pleasant, cooperative woman of overweight build who is neatly dressed and groomed. Her thoughts are logical and coherent. She reports intermittent symptoms of depression. He is not suicidal. There is no psychosis. She is cognitively intact. Diagnoses: [] [place] I: Major depression, recurrent, in partial remission [place] II: None [place] III: Overweight, Crohn's disease, complex migraines Plan: No psychiatric medicines are prescribed as per patient request. She will soon be completing treatment in the intensive outpatient program. I will see her again as needed.
--- NOTE | 2019-02-17 09:00 | BH.SGPN.GN ---
Behaviors/Verbalizations/Mental Status: [] Eye contact is good. Motor activity is appropriate. Appearance is neat. Speech is Appropriate. Mood is anxious. Affect is congruent. Thoughts are linear and logical. No evidence of psychosis. Reviewed daily check in sheet and no reports of suicidal ideations or intent Client Response/Progress/Benefit: [] Pt was an active participant in group discussions. Emotion for today is hopeful. Reports that she had a positive weekend running 8 miles. Shared that she is sad thjat tomorrow will be her last day in the IOP program, however knows that she is ready. Discussed some stressors related to her job, however remains hopeful and understands and accepts what she has control over in her life. Shared that progress that she has made to new group members in regards to managing her thoughts and emotions. Benefited from group support and encouragement. Tomorrow will be pt's last day in [facility]. Narrative Note: []
--- NOTE | 2019-02-17 11:15 | BH.SGPN.GN ---
Behaviors/Verbalizations/Mental Status: []Client alert and oriented, neatly dressed and groomed. Eye contact good. Motor activity appropriate. Speech within normal limits. Affect congruent, mood euthymic. Thoughts linear, logical, no signs of hallucinations or delusions. Client Response/Progress/Benefit: []client responded well to session, positive contributions. Client further explored her communication style and identified using the passive-aggressive type. Client shared this style has gotten client in trouble at work ?because I?m misunderstood.? Client stated she has been working on being more assertive and having awareness of her reactions during social situations. Client participated in the group activity and was able to practice calm, assertive communication. Client helped the group discuss strategies to improve communication and he set a goal to increase her assertive communication. Client?s goal is to have more awareness of other people?s perspective and feelings when communicating. Client appeared to benefit from increasing communication skills. Progress noted in client?s self-report of improved mood and application of coping skills. Client to continue IOP one more day to reinforce healthy coping skills.
--- NOTE | 2019-02-17 15:15 | BH.MDN_ITS ---
Multi-Disciplinary Note - Note Family Time Started:: 12:18 Date: 02/17/19 Purpose of session/treatment goals addressed:: Purpose of family session was to include pt's in the aftercare plan, answer any questions/concerns from , identify ways pt's can be supportive, identify pt's progress since starting IOP, and discuss strategies/skills that will help pt maintain progress post-discharge from IOP. Eye Contact:: Good Motor Activity:: Appropriate Appearance:: Casual Speech:: Appropriate Mood:: Euthymic, Anxious Affect:: Congruent Thoughts:: Linear, Logical, No evidence of hallucinations/delusions noted Staff Interventions:: Therapist used open ended questions to elicit pt and pt's husbands thoughts about pt's treatment progress. Therapist elicited questions or concerns from pt's and faciliated discussion about improving support for pt. Therapist collaborated with pt and pt's to identify skills and strategies that will help pt maintain the progress she has made since starting IOP. Therapist provided support by using active listening and validating emotions. Client Response:: Pt's reported he has noticed a lot of progress since pt started IOP. He elaborted that he has noticed pt will address stressors and conflict in a more positive way compared to in the past. Pt's stated he has noticed improvement with pt being able to communciate more effectively and manage her emotions better. Pt stated she has noticed progress with so much, highlighting how improved self-awareness has significantly helped her. Pt reported she has awareness of her thought patterns, emotions, behaviors, warning signs, and triggers. Pt shared she is able to recognize negative or anxious thought patterns and can challenge or reframe much easier compared to when first started IOP. Pt stated she can manage and express her emotions more effectively which has a positive impact on relationships. Pt shared yesterday she noticed warning signs of depression and she utilized the opposite action strategy to keep herself from falling into a pitfall. Pt's expressed not knowing how to support pt best when he notices pt's depressed symptoms. Pt communicated what pt's can do that would be helpful, validated he already does a lot to help her and discussed they can continue to talk about best ways to support each other. Pt identified strategies that can help her maintain progress to include: bullet journal to do weekly check-in, setting daily SMART goals, identifying and challenging distorted thoughts, thinking before she speaks, and reviewing IOP binder. Pt expressed being grateful for her time in IOP because she has learned so much and feels more stable. Pt stated she is following up with her already established outpatient counselor and is waiting to hear back from her counselor to set up an appointment. Risks/Concerns:: Pt denies suicidal ideation, plan or intention to date. Progress Toward Goals/Plan:: Pt has made signficiant progress on her treatment goals AEB pt reporting decrease in both depressive and anxious symptoms. Pt reported improved awareness Pt reported she has awareness of her thought p atterns, emotions, behaviors, warning signs, and triggers. Pt is able to recognize negative or anxious thought patterns and can challenge or reframe much easier compared to when first started IOP. Pt has improved emotional regulation which has led to pt being able to express her emotions in a healthier manner. Plan is for pt to discharge from IOP tomorrow. Time Stopped:: 12:58
--- NOTE | 2019-02-18 09:00 | BH.SGPN.GN ---
Behaviors/Verbalizations/Mental Status: [] Eye contact is good. Motor activity is appropriate. Appearance is neat. Speech is Appropriate. Mood is euthymic. Affect is full. Thoughts are linear and logical. No evidence of psychosis. Reviewed daily check in sheet and no reports of suicidal ideations or intent. Client Response/Progress/Benefit: [] Pt was an active participant in group discussions. Emotion for today is anxious. Shared with the group that today is her last day in [facility]. Shared a couple stressors including her job, however continues to verbalize that she is confident she can manage her emotions and stressors. Reports letting go of things that she cannot control. Discussed her progress in the program stating that she is grateful for the group and remarked that the program has changed her life. Highlighted that groups on cognitive distortions were most beneficial. Benefited from group support, praise, and encouragement. Will be discharged from [facility] today. Narrative Note: []
--- NOTE | 2019-02-18 10:10 | BH.SGPN.GN ---
Behaviors/Verbalizations/Mental Status: [Client alert and oriented, casually dressed. Eye contact intense. Motor activity appropriate. Speech within normal limits. Affect congruent and bright, mood euthymic. Thoughts linear, logical, no signs of hallucinations or delusions. ] Client Response/Progress/Benefit: [Pt responded well to session, actively contributing. Client engaged in discussion on anxiety and reported that if not addressed, anxiety can further intensify and make it harder to address the next time. Pt participated in reviewing common physical, cognitive, and behavioral symptoms experienced with anxiety and identified relationship between types of symptoms. Identified personal physical anxiety symptoms as: getting hives, racing heart, feeling cold, digestive issues, and shakiness. Shared that her anxiety related safety behaviors include: avoidance, lashing out, and binge eating. Pt appeared to benefit from psychoeducation on anxiety and increasing awareness of physical symptoms as well as common safety behaviors used. Given current level of progress pt to discharge from IOP program on this date to individual outpatient services.] Narrative Note: []
--- NOTE | 2019-02-18 10:22 | BH.AFTERPLAN ---
Aftercare Plan - Demographics Treatment End Date:: 02/18/19 Psychiatrist:: Jeremías Loredo Psychiatrist Office #:: [phone] PHP/IOP Therapist:: Kathy Henley Therapist Phone #:: [phone] - Plan Details Progress/Aftercare Plan Details:: You have shown signficiant progress in many areas of your life since you started PHP/IOP! You have increased self-awarenss of warning signs, triggers, distorted thought patterns, and emotions. This improved self-awareness has led to improved ability to manage depressive and anxious symptoms as well as improve relationships. You not only have increased awareness, but have taken the information learned and intentionally applied the skills to your daily life which has a positive impact on your mental health. Keeping a thought log has helped you gain awareness of how thought patterns can impact ability to function and how you respond to others. You are able to identify those unhelpful thought patterns easier compared to when first started program and are able to reframe or challenge unhelpful thoughts. Awareness of your warning signs for depressed state has helped you engage behavioral activation skills of opposite action, which has helped counteract the depressed voice telling you to stay in bed or watch TV all day. The progress you have made in a short 2 months is astounding and shows how much effort you put into your own recovery and journey to mental wellness. In regards to maintaining progress and success it will be integral to follow up with Enedina Tavera for continued counseling to reinforce skills learned. Weekly self-reflection could also be helpful with maintaining progress. Strategies for Success:: 1. Bullet Journal - can use to keep track of weekly positives, stressors, daily check-in, identify what you are grateful for, etc. Having a journal with daily or weekly check-ins gives you something tangible to reflect on when having moments of struggle to remind you of the progress you are making and how far you have come. 2. Look back at IOP binder to see if there are any homework assignments weren't able to complete while in program that you are now ready and able to complete. 3. Setting SMART daily and/or weekly goals. Remember adams part is to make goals manageable by setting realistic expecations! Reward self for success - even the small ones! 4. Continue to be aware of distorted thought patterns and challenge those thought patterns. 5. Taking a deep breathe before responding to a situation can help you think before you act. 6. Remember it is okay to be in the rivas! Rigid and all or nothing thinking can led to increased conflicts, being closed minded, and high expectations of self/others. Reflect on how flexible thinking and open mindedness has benefitted you as a whole. 7. Plan ahead for known triggers like winter months which can increase depressive symptoms. Identify activities and events can be involved in to increase connections and get you out of the house. 8. Communicate! People can't read your mind...remember to ask for what you need or needs won't get met. 9. Review PHP/IOP binder to refresh self on skills learned. 10. Daily positives to start and end day can help start and end your day on a positive note! 11. Self-forgiveness - remember ruminating or beating yourself up for past decisions will not make things better. Focus on what is in your control and how you can apply new skills to improve yourself and relationships with others. - Appointments Appointments/Referrals to Other Services:: 1. Follow up with Enedina Tavera for continued counseling.
--- NOTE | 2019-02-18 10:43 | BH.IGGP_ITS ---
Aftercare Plan - Demographics Treatment End Date:: 02/18/19 Psychiatrist:: Jeremías Loredo Psychiatrist Office #:: [phone] PHP/IOP Therapist:: Kathy Henley Therapist Phone #:: [phone] - Plan Details Progress/Aftercare Plan Details:: You have shown signficiant progress in many areas of your life since you started PHP/IOP! You have increased self-awarenss of warning signs, triggers, distorted thought patterns, and emotions. This improved self-awareness has led to improved ability to manage depressive and anxious symptoms as well as improve relationships. You not only have increased awareness, but have taken the information learned and intentionally applied the skills to your daily life which has a positive impact on your mental health. Keeping a thought log has helped you gain awareness of how thought patterns can impact ability to function and how you respond to others. You are able to identify those unhelpful thought patterns easier compared to when first started program and are able to reframe or challenge unhelpful thoughts. Awareness of your warning signs for depressed state has helped you engage behavioral activation skills of opposite action, which has helped counteract the depressed voice telling you to stay in bed or watch TV all day. The progress you have made in a short 2 months is astounding and shows how much effort you put into your own recovery and journey to mental wellness. In regards to maintaining progress and success it will be integral to follow up with Ened[facility] Tavera for continued counseling to reinforce skills learned. Weekly self-reflection could also be helpful with maintaining progress. Strategies for Success:: 1. Bullet Journal - can use to keep track of weekly positives, stressors, daily check-in, identify what you are grateful for, etc. Having a journal with daily or weekly check-ins gives you something tangible to reflect on when having moments of struggle to remind you of the progress you are making and how far you have come. 2. Look back at IOP binder to see if there are any homework assignments weren't able to complete while in program that you are now ready and able to complete. 3. Setting SMART daily and/or weekly goals. Remember adams part is to make goals manageable by setting realistic expecations! Reward self for success - even the small ones! 4. Continue to be aware of distorted thought patterns and challenge those thought patterns. 5. Taking a deep breathe before responding to a situation can help you think before you act. 6. Remember it is okay to be in the rivas! Rigid and all or nothing thinking can led to increased conflicts, being closed minded, and high expectations of self/others. Reflect on how flexible thinking and open mindedness has benefitted you as a whole. 7. Plan ahead for known triggers like winter months which can increase depressive symptoms. Identify activities and events can be involved in to increase connections and get you out of the house. 8. Communicate! People can't read your mind...remember to ask for what you need or needs won't get met. 9. Review PHP/IOP binder to refresh self on skills learned. 10. Daily positive s to start and end day can help start and end your day on a positive note! 11. Self-forgiveness - remember ruminating or beating yourself up for past decisions will not make things better. Focus on what is in your control and how you can apply new skills to improve yourself and relationships with others. - Appointments Appointments/Referrals to Other Services:: 1. Follow up with Enedina Tavera for continued counseling.
--- NOTE | 2019-02-18 10:49 | BH.DS ---
Discharge Summary - Demographics Date of Admission:: 01/06/19 Discharge Date: 02/18/19 Discharge Diagnoses:: F33.41 Major depression, recurrent, in partial remission - Treatment Discharge Handout: Complete Discharge Handout with client on aftercare options and continuity of care.
--- NOTE | 2019-02-18 11:15 | BH.SGPN.GN ---
Behaviors/Verbalizations/Mental Status: []Client alert and oriented, neatly dressed and groomed. Eye contact good. Motor activity appropriate. Speech within normal limits. Affect congruent, mood anxious, euthymic. Thoughts linear, logical, no signs of hallucinations or delusions. Client Response/Progress/Benefit: []Client responded well to session, engaged and providing examples. Client contributed to discussion of how one can learn to better manage anxiety. Client reported one cannot prevent anxious thoughts from occurring, but one can learn to ?stop the runaway train? of negative thoughts. Client stated managing anxiety and negative thinking can be done through mindfulness. Client appeared to connect with mindfulness and the different ways one can practice mindfulness. Client reported she has been using mindfulness which has helped her ?not freak out as much.? Client stated she tells herself ?this won?t last forever.? Client engaged in the mindfulness exercises led by health insurance adjuster. Client created a mindfulness ?menu? and reported she plans to try body scanning and forest bathing as a mindfulness technique to manage anxiety. Client appeared to benefit from practicing in the moment mindfulness techniques. Progress noted as client reports increased ability to cope with depressive and anxious symptoms. Client to discharge from [facility] as she has shown significant progress.
== END 2019-02-18 14:00 ==
LOC: BHIOP 09:00
PROVIDERS: Referring Provider Psychiatry & Neurology Psychiatry; Visit Provider Psychiatry & Neurology Psychiatry
DX: F33.9 Major depressive disorder, recurrent, unspecified (principal); E66.3 Overweight; K50.90 Crohn's disease, unspecified, without complications; G43.809 Other migraine, not intractable, without status migrainosus
CPT/HCPCS: H0035; 90834; 90837; 90847; 90853